=== PATIENT | female | born 1925 | race Caucasian/White ===

== ENCOUNTER 2016-03-23 13:36 | Inpatient (IN) | payer MEDICARE ==
[~2016-03-23] VITALS: Ht 149.9 cm; Wt 49.4 kg
[~2016-03-23 13:36] MED LIST: ACET1CAP18 PO; AMLO10 PO; APIX2.5T PO; ASPI81TA11 OR; ATOR20TA42 PO; BETH25TA PO; BIOFTAB PO; BIOT10004 PO; BONI150T PO; CALTCHW4 OR; CARV12.52 PO; DETR2TAB OR; DIOV320T PO; HYDR-3533 PO; MAGN400T PO; META0.52 PO; METO50TA PO; NIAC500T5 PO; PACE100T2 PO; PERI8.6T PO; PROT40TA PO; TAB-TAB PO; TRAZ50TA4 PO; URSO300C3 PO; VITA400C70 PO
[2016-03-23 13:42] VITALS: BP 225/99; PULSE 83; RESP 16; TEMP 97.5; O2SAT 97
[2016-03-23] MEDS ORDERED: ONDANSETRON HCL 4 MG/2 ML VIAL IV PUSH ONE ×2 (14:15→19:45)
[2016-03-23] MEDS ORDERED: MORPHINE SULFATE 4 MG/ML INJ IV PUSH ONE ×2 (14:15→19:45)
[2016-03-23 14:19] LABS: BASOPHIL % 0.5 % (0.0-2.0); EOSINOPHIL # 0.1 TH/MM3 (0-0.4); EOSINOPHIL % 1.2 % (0.0-4.0); HEMATOCRIT 38.8 % (35.0-46.0); HEMO FLAGS DIFF FINAL; LYMPHOCYTE # 0.7 TH/MM3 (1.0-4.8); MEAN CELL VOLUME 91.3 FL (80.0-100.0); MEAN CORPUSCULAR HEMOGLOBIN 29.9 PG (27.0-34.0); MEAN CORPUSCULAR HGB CONC 32.8 % (32.0-36.0); MONO % 12.9 % (0.0-8.0); NEUT % 75.4 % (16.0-70.0); PLATELET COUNT 132 TH/MM3 (150-450); RED BLOOD COUNT 4.25 MIL/MM3 (4.00-5.30); RED CELL DISTRIBUTION WIDTH 15.1 % (11.6-17.2); WHITE BLOOD COUNT 6.6 TH/MM3 (4.0-11.0)
--- NOTE | 2016-03-23 14:19 | PD ---
HPI Chief Complaint: Fall Time Seen by Provider: 14:17 Travel History International Travel<30 days: No Contact w/Intl Traveler<30days: No Traveled to known affect area: No History of Present Illness HPI 89-year-old female that presents to the ED for evaluation of trip and fall today. Per patient she lost her balance on her walker and she landed on her right side. She did not hit her head or lose consciousness. She states having severe pain on the right hip and cannot ambulate with pain 8 out of 10. She does have a history of previous fractures on the pelvic area on the right hip but she denies any surgeries. She was seen here in November for something similar. She does take blood thinners. She denies any numbness, tilling, weakness. Patient has no pain if she doesn't move it but if she moves she has severe pain on the right side. Allergies to penicillin, Polysporin, sulfa. Patient has not been given anything for this. Patient came here by ambulance for evaluation of this. She denies any back pain or neck pain. No arm pain. Denies any pain to the left lower extremity. PFSH Past Medical History Hx Anticoagulant Therapy: Yes Arthritis: Yes (OSTEOARTHRITIS) Atrial Fibrillation: Yes (WITH SVT) Autoimmune Disease: No Heart Rhythm Problems: No Cancer: Yes (Breast cancer) Cardiac Catheterization: Yes Cardiovascular Problems: Yes (HTN) High Cholesterol: Yes Chest Pain: Yes Cerebrovascular Accident: No Diabetes: No Diminished Hearing: Yes Diverticulitis: Yes Endocrine: No Gastrointestinal Disorders: Yes (GASTROPARESIS) GERD: Yes Genitourinary: No Hypertension: Yes Immune Disorder: No Musculoskeletal: Yes (Right pubic fracture, arthritis) Neurologic: Yes Psychiatric: No Reproductive: No Respiratory: No Immunizations Current: Yes Migraines: No Pancreatitis: Yes Seizures: No Thyroid Disease: No Triglycerides - High: Yes Ulcer: No Menopausal: Yes Past Surgical History Abdominal Surgery: Yes (HERNIA REPAIR) Cardiac Surgery: Yes (CABG) 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) Eye Surgery: Yes (BILATERAL CATARACTS) Genitourinary Surgery: Yes (BLADDER SLING) Gynecologic Surgery: Yes ( L LUMPECTOMY (BENIGN)) Hysterectomy: Yes Thoracic Surgery: Yes Tonsillectomy: Yes Valve Replacement: Yes (AORTIC VALVE) Other Surgery: Yes (MASTOID SURGERY ) Family History Family Hypercholesterolemia: Yes Social History Alcohol Use: Yes (RARE) Tobacco Use: No Substance Use: No Allergies-Medications (Allergen,Severity, Reaction): Coded Allergies: Penicillin (Verified Allergy, Severe, JAUNDICED, 12/12/15) Sulfa (Verified Allergy, Severe, 12/12/15) Polysporin (Verified Adverse Reaction, Severe, 12/12/15) Reported Meds & Prescriptions Reported Meds & Active Scripts Active Norvasc (Amlodipine Besylate) 10 Mg Tab 10 Mg PO DAILY 30 Days Lortab 5 mg/325 mg (Hydrocodone/Acetaminophen 5 mg/325 mg) 1 Tab 1-2 Tab PO Q4H PRN Mansi-Colace 8.6-50 mg (Sennosides-Docusate Sodium) 1 Tab Tab 2 Tab PO DAILY PRN May take 2 tablets daily up to 2 tablets twice daily as needed for constipation. Do not take more than a maximum of 4 tablets in 24 hours. Reported Vitamin E-400 (Vitamin E) 400 Unit Cap 400 Unit PO DAILY Tylenol (Acetaminophen) 325 Mg Cap 1 Cap PO PRN Trazodone Hcl (Trazodone HCl) 50 Mg Tab 1 Tab PO HS Eliquis (Apixaban) 2.5 Mg Tab 1 Tab PO BID Bioflex (Bioflavonoid Products) Tab 1 Tab PO DAILY Bethanechol Chloride 25 Mg Tab 1.5 Mg PO QID PRN Pacerone 100 mg (Amiodarone HCl) 100 Mg Tab 1 Tab PO DAILY Boniva (Ibandronate Sodium) 150 Mg Tab 150 Mg PO Q30D Ursodiol 300 Mg Cap 300 Mg PO BID Biotin 1 000 Tab 1,000 Mcg PO Metamucil (Psyllium) 0.52 Gm Cap 1 Cap PO DAILY Multivitamin (Multivitamins) 1 Tab Tab 1 Tab PO DAILY Metoprolol Tartrate 50 mg (Metoprolol Tartrate) 50 Mg Tab 25 Mg PO BID Niacin 500 Mg Tab 500 Mg PO DAILY Diovan 320 mg (Valsartan) 320 Mg Tab 320 Mg PO DAILY Mag-Ox 400 (Magnesium Oxide) 400 Mg Tab 400 Mg PO DAILY Aspirin EC 81 mg (Aspirin) 81 Mg Tab 81 Mg OR DAILY Caltrate 600+D (Calcium Carbonate/Cholecalciferol) Chw 1 OR BID Detrol 2 mg (Tolterodine Tartrate) 2 Mg Tab 4 Mg OR DAILY Protonix (Pantoprazole Sodium) 40 Mg Tabdr 40 Mg PO DAILY Carvedilol 12.5 mg (Carvedilol) 12.5 Mg Tab 25 Mg PO BID Lipitor (Atorvastatin Calcium) 20 Mg Tab 20 Mg PO DAILY Review of Systems Except as stated in HPI: all other systems reviewed are Neg Physical Exam Narrative GENERAL: SKIN: Warm and dry. HEAD: Atraumatic. Normocephalic. EYES: Pupils equal and round. No scleral icterus. No injection or drainage. ENT: No nasal bleeding or discharge. Mucous membranes pink and moist. Tongue is midline. No uvula deviation. NECK: Trachea midline. No JVD. CARDIOVASCULAR: Regular rate and rhythm. No murmurs, S3, S4. RESPIRATORY: No accessory muscle use. Clear to auscultation. Breath sounds equal bilaterally. GASTROINTESTINAL: Abdomen soft, non-tender, nondistended. Hepatic and splenic margins not palpable. MUSCULOSKELETAL: Extremities without clubbing, cyanosis, or edema. No obvious deformities. Patient has reproducible pain with touch as well as with any movement on the right hip. Minimal movement of the right hip causes severe pain to the patient. No obvious deformity noted. Knees appear to be intact bilaterally. Ankles as well as feet and toes appear to be intact as well with 2 + pulses bilaterally. Patient has neurovascular intact. Patient has full range of motion of the upper extremities. No lumbar, thoracic, cervical spine tenderness to palpation. NEUROLOGICAL: Awake and alert. No obvious cranial nerve deficits. Motor grossly within normal limits. Five out of 5 muscle strength in the arms and legs. Normal speech. PSYCHIATRIC: Appropriate mood and affect; insight and judgment normal. Data Data Last Documented VS Vital Signs Date Time Temp Pulse Resp B/P Pulse Ox O2 Delivery O2 Flow Rate FiO2 03/23/16 13:42 97.5 83 16 225/99 97 Orders Femur (Ap & Lat/2vws) (03/23/16 13:53) Hip, Uni(Ap&Lat) W Ap Pelvis (03/23/16 13:53) Ice/Cold Pack (03/23/16 13:53) Electrocardiogram (03/23/16 13:53) Complete Blood Count With Diff (03/23/16 13:53) Basic Metabolic Panel (Bmp) (03/23/16 13:53) Prothrombin Time / Inr (Pt) (03/23/16 13:53) Act Partial Throm Time (Ptt) (03/23/16 13:53) Urinalysis - C+S If Indicated (03/23/16 13:53) Chest, Single Ap (03/23/16 13:53) Iv Access Insert/Monitor (03/23/16 13:53) Morphine Inj (Morphine Inj) (03/23/16 14:15) Ondansetron Inj (Zofran Inj) (03/23/16 14:15) Ct Brain W/O Iv Contrast(Rout) (03/23/16 ) Splint Or Brace Apply/Monitor (03/23/16 15:30) Admit Order (Ed Use Only) (03/23/16 15:49) Labs Laboratory Tests Test 03/23/16 03/23/16 13:55 14:00 Urine Color YELLOW Urine Turbidity CLEAR Urine pH 7.5 Urine Specific [place] 1.008 Urine Protein NEG mg/dL Urine Glucose (UA) NEG mg/dL Urine Ketones NEG mg/dL Urine Occult Blood NEG Urine Nitrite NEG Urine Bilirubin NEG Urine Urobilinogen LESS THAN 2.0 MG/DL Urine Leukocyte Esterase SMALL Urine RBC 1 /hpf Urine WBC LESS THAN 1 /hpf Urine Squamous Epithelial <1 /hpf Cells Urine Bacteria RARE /hpf Microscopic Urinalysis Comment CULT NOT INDICATED White Blood Count 6.6 TH/MM3 Red Blood Count 4.25 MIL/MM3 Hemoglobin 12.7 GM/DL Hematocrit 38.8 % Mean Corpuscular Volume 91.3 FL Mean Corpuscular Hemoglobin 29.9 PG Mean Corpuscular Hemoglobin 32.8 % Concent Red Cell Distribution Width 15.1 % Platelet Count 132 TH/MM3 Mean Platelet Volume 9.9 FL Neutrophils (%) (Auto) 75.4 % Lymphocytes (%) (Auto) 10.0 % Monocytes (%) (Auto) 12.9 % Eosinophils (%) (Auto) 1.2 % Basophils (%) (Auto) 0.5 % Neutrophils # (Auto) 5.0 TH/MM3 Lymphocytes # (Auto) 0.7 TH/MM3 Monocytes # (Auto) 0.9 TH/MM3 Eosinophils # (Auto) 0.1 TH/MM3 Basophils # (Auto) 0.0 TH/MM3 CBC Comment DIFF FINAL Differential Comment Prothrombin Time 12.0 SEC Prothromb Time International 1.1 RATIO Ratio Activated Partial 27.3 SEC Thromboplast Time Sodium Level 134 MEQ/L Potassium Level 3.8 MEQ/L Chloride Level 98 MEQ/L Carbon Dioxide Level 27.8 MEQ/L Anion Gap 8 MEQ/L Blood Urea Nitrogen 15 MG/DL Creatinine 0.62 MG/DL Estimat Glomerular Filtration 91 ML/MIN Rate Random Glucose 92 MG/DL Calcium Level 8.6 MG/DL [facility] Medical Decision Making Medical Screen Exam Complete: Yes Emergency Medical Condition: Yes Medical Record Reviewed: Yes Interpretation(s) CBC & BMP Diagram 03/23/16 14:00 UA negative for acute infection. Coags within normal limits. Chest x-ray negative for acute disease. EKG shows sinus rhythm with no sign of acute arrhythmia or ischemia. Read by me and attending. Last Impressions Chest X-Ray 03/23/16 1353 Signed Impressions: Service Date/Time: Wednesday, March 23, 2016 14:27 - CONCLUSION: No acute process Rivas Merino MD Head CT 03/23/16 0000 Signed Impressions: Service Date/Time: Wednesday, March 23, 2016 15:34 - CONCLUSION: Stable CT brain scan with moderate atrophy. No acute intracranial abnormality. Rivas Merino MD Differential Diagnosis Fall versus injury versus fracture versus sprain versus strain versus contusion Narrative Course 89-year-old female that presents to the ED for evaluation of fall to the right hip. Patient was properly examined and was found to have signs and symptoms concerning for fracture. X-rays were done as well as labs and imaging. Patient was given IV morphine. Labs and imaging showed fracture of the right hip. Case was discussed in my attending who agrees with plan. Orthopedic surgeon was contacted. Patient will be admitted to medical team [facility]. This was discussed with family and patient who agree with admission and treatment plan. Case was discussed with orthopedic surgeon Dr Short who recommends surgery tomorrow likely afternoon after blood thinners stopped. Nothing by mouth after midnight. Admit to medicine. My attending spoke with Dr. Mark who agrees to [facility]. Diagnosis Primary Impression: Hip fracture, right Qualified Code: S72.001A - Hip fracture, right, closed, initial encounter Admitting Information Admitting Physician Requests: Admit Chris Mora Mar 23, 2016 14:19
[2016-03-23 14:21] LABS: BACTERIA, URINE RARE /hpf; BLOOD, URINE NEG (NEG); GLUCOSE,URINE NEG (NEG); KETONE, URINE NEG (NEG); NITRITE,URINE NEG (NEG); PH, URINE 7.5 (5.0-8.5); SQUAMOUS EPITHELIAL CELL URINE <1 /hpf (0-5); URINE COLOR YELLOW (YELLW/STRAW)
[2016-03-23 14:23] LABS: COMMENT (UR) CULT NOT INDICATED; CULTURE IF INDICATED CULT NOT INDICATED
[2016-03-23 14:29] LABS: APTT (PATIENT) 27.3 SEC (24.3-30.1); INTERNATIONAL NORMALIZED RATIO 1.1 RATIO
[2016-03-23 14:38] LABS: BICARBONATE 27.8 MEQ/L (21.0-32.0); POTASSIUM 3.8 MEQ/L (3.5-5.1)
--- NOTE | 2016-03-23 15:44 | RADRPT ---
EXAM DATE/TIME: 03/23/2016 14:27 [facility] COMPARISON: CHEST SINGLE AP, December 12, 2015, 20:59. INDICATIONS : Evaluate lung status. Patient fell today. MEDICAL HISTORY : Hypertension. Hypercholesterolemia. Chronic obstructive pulmonary disease.Congestive heart failure. H yperlipidemia. Hiatal hernia. Diverticulitis. Pancreatitis. Uterine cancer. SURGICAL HISTORY : CABG Pacemaker.Hysterectomy.Heart valve replacement. Hernia repair. Laminectomy. Bladder sling. ENCOUNTER: Initial ACUITY: 1 day PAIN SCORE: 4/10 LOCATION: Bilateral chest FINDINGS: Multiple remote healed right rib fractures appreciated with evidence prior median sternotomy CABG and atherosclerotic changes of the aorta. Lung godoy are clear with no acute cardiopulmonary process an d no evidence of pneumothorax. CONCLUSION: No acute process Rivas Merino MD on March 23, 2016 at 15:42 Board Certified Radiologist. This report was verified electronically.
--- NOTE | 2016-03-23 15:51 | RADRPT ---
EXAM DATE/TIME: 03/23/2016 15:34 [facility] COMPARISON: CT BRAIN W/O CONTRAST, May 08, 2012, 11:39. INDICATIONS : Trip and fall this morning. RADIATION DOSE: 56.35 CTDIvol (mGy) MEDICAL HISTORY : Carcinoma, breast. Cardiovascular disease Hypertension. SURGICAL HISTORY : None. ENCOUNTER: Initial ACUITY: 1 day PAIN SCALE: 5/10 LOCATION: cranial TECHNIQUE: Multiple contiguous axial images were obtained of the head. Using automated exposure control and adjustment of the mA and/or kV according to patient size, radiation dose was kept as low as reasonably achievable to obtain optimal diagnostic quality images. FINDINGS: CEREBRUM: The ventricles are normal for age with moderate atrophy No evidence of midline shift, m ass lesion, hemorrhage or acute infarction. No extra-axial fluid collections are seen. POSTERIOR FOSSA: The cerebellum and brainstem are intact. The 4th ventricle is midline. The cer ebellopontine angle is unremarkable. EXTRACRANIAL: The visualized portion of the orbits is intact. SKULL: The calvaria is intact. No evidence of skull fracture. CONCLUSION: Stable CT brain scan with moderate atrophy. No acute intracranial abnormality. Rivas Merino MD on March 23, 2016 at 15:48 Board Certified Radiologist. This report was verified electronically.
--- NOTE | 2016-03-23 16:37 | RADRPT ---
EXAM DATE/TIME: 03/23/2016 14:30 [facility] COMPARISON: No previous studies available for comparison. INDICATIONS: Right hip pain after falling today. MEDICAL HISTORY: Hypertension. Hypercholesterolemia. Chronic obstructive pulmonary disease. Congestive heart failure. Hyperlipidemia. Hiatal hernia. Diverticulitis. Pancreatitis. Uterine cancer. SURGICAL HISTORY: CABG Pacemaker. Hysterectomy. Heart valve replacement. Hernia repair. Laminectomy. Bladder sling. ENCOUNTER: Initial ACUITY: 1 day PAIN SCORE: 6/10 LOCATION: Right hip. FINDINGS: Again seen is the hip fracture involving the intertrochanteric region and the femoral neck of the fem ur. No other fractures are appreciated. CONCLUSION: Fracture as described above. Bertin Muniz MD FACR on March 23, 2016 at 16:22 Board Certified Radiologist. This report was verified electronically.
--- NOTE | 2016-03-23 16:38 | RADRPT ---
EXAM DATE/TIME: 03/23/2016 14:27 [facility] COMPARISON: HIP RIGHT (AP&LAT 2/3VWS) W AP PELVIS, December 12, 2015, 20:59. INDICATIONS: Right hip pain after falling today. MEDICAL HISTORY: Hypertension. Hypercholesterolemia. Chronic obstructive pulmonary disease. Congestive heart failure. Hyperlipidemia. Hiatal hernia. Diverticulitis. Pancreatitis. Uterine cancer. SURGICAL HISTORY: CABG Pacemaker. Hysterectomy. Heart valve replacement. Hernia repair. Laminectomy. Bladder sling. ENCOUNTER: Initial ACUITY: 1 day PAIN SCORE: 6/10 LOCATION: Right hip. FINDINGS: There is an intertrochanteric fracture of the right hip. It is somewhat vertically extending across the intertrochanteric line into the base of the femur. Old fracture is seen in the inferior pubic ra mus on the right. CONCLUSION: Hip fracture as described above. Bertin Muniz MD FACR on March 23, 2016 at 16:22 Board Certified Radiologist. This report was verified electronically.
--- NOTE | 2016-03-23 16:50 | PD ---
Physical Exam Narrative General: 89 y/o patient in no apparent distress Skin: Dry Eyes: Pupils equal NECK: Trachea midline Cardiovascular: Regular rate and rhythm Respiratory: Normal respiratory effort noted Extremities: Shortening noted to leg Neuro: awake, clear speech Data Data Last Documented VS Vital Signs Date Time Temp Pulse Resp B/P Pulse Ox O2 Delivery O2 Flow Rate FiO2 03/23/16 13:42 97.5 83 16 225/99 97 Orders Femur (Ap & Lat/2vws) (03/23/16 13:53) Hip, Uni(Ap&Lat) W Ap Pelvis (03/23/16 13:53) Ice/Cold Pack (03/23/16 13:53) Electrocardiogram (03/23/16 13:53) Complete Blood Count With Diff (03/23/16 13:53) Basic Metabolic Panel (Bmp) (03/23/16 13:53) Prothrombin Time / Inr (Pt) (03/23/16 13:53) Act Partial Throm Time (Ptt) (03/23/16 13:53) Urinalysis - C+S If Indicated (03/23/16 13:53) Chest, Single Ap (03/23/16 13:53) Iv Access Insert/Monitor (03/23/16 13:53) Morphine Inj (Morphine Inj) (03/23/16 14:15) Ondansetron Inj (Zofran Inj) (03/23/16 14:15) Ct Brain W/O Iv Contrast(Rout) (03/23/16 ) Splint Or Brace Apply/Monitor (03/23/16 15:30) Admit Order (Ed Use Only) (03/23/16 15:49) Labs Laboratory Tests Test 03/23/16 03/23/16 13:55 14:00 Urine Color YELLOW Urine Turbidity CLEAR Urine pH 7.5 Urine Specific [place] 1.008 Urine Protein NEG mg/dL Urine Glucose (UA) NEG mg/dL Urine Ketones NEG mg/dL Urine Occult Blood NEG Urine Nitrite NEG Urine Bilirubin NEG Urine Urobilinogen LESS THAN 2.0 MG/DL Urine Leukocyte Esterase SMALL Urine RBC 1 /hpf Urine WBC LESS THAN 1 /hpf Urine Squamous Epithelial <1 /hpf Cells Urine Bacteria RARE /hpf Microscopic Urinalysis Comment CULT NOT INDICATED White Blood Count 6.6 TH/MM3 Red Blood Count 4.25 MIL/MM3 Hemoglobin 12.7 GM/DL Hematocrit 38.8 % Mean Corpuscular Volume 91.3 FL Mean Corpuscular Hemoglobin 29.9 PG Mean Corpuscular Hemoglobin 32.8 % Concent Red Cell Distribution Width 15.1 % Platelet Count 132 TH/MM3 Mean Platelet Volume 9.9 FL Neutrophils (%) (Auto) 75.4 % Lymphocytes (%) (Auto) 10.0 % Monocytes (%) (Auto) 12.9 % Eosinophils (%) (Auto) 1.2 % Basophils (%) (Auto) 0.5 % Neutrophils # (Auto) 5.0 TH/MM3 Lymphocytes # (Auto) 0.7 TH/MM3 Monocytes # (Auto) 0.9 TH/MM3 Eosinophils # (Auto) 0.1 TH/MM3 Basophils # (Auto) 0.0 TH/MM3 CBC Comment DIFF FINAL Differential Comment Prothrombin Time 12.0 SEC Prothromb Time International 1.1 RATIO Ratio Activated Partial 27.3 SEC Thromboplast Time Sodium Level 134 MEQ/L Potassium Level 3.8 MEQ/L Chloride Level 98 MEQ/L Carbon Dioxide Level 27.8 MEQ/L Anion Gap 8 MEQ/L Blood Urea Nitrogen 15 MG/DL Creatinine 0.62 MG/DL Estimat Glomerular Filtration 91 ML/MIN Rate Random Glucose 92 MG/DL Calcium Level 8.6 MG/DL [facility] Supervised Visit with EUGENIE: Yes Interpretation(s) CBC & BMP Diagram 03/23/16 14:00 Last 24 hours Impressions Chest X-Ray 03/23/16 1353 Signed Impressions: Service Date/Time: Wednesday, March 23, 2016 14:27 - CONCLUSION: No acute process Rivas Merino MD Head CT 03/23/16 0000 Signed Impressions: Service Date/Time: Wednesday, March 23, 2016 15:34 - CONCLUSION: Stable CT brain scan with moderate atrophy. No acute intracranial abnormality. Rivas Merino MD Narrative Course I, Dr. richard, have reviewed the advance practice practitioner's documentation and am in agreement, met with the patient face to face, made the diagnosis, and the medical decision making was done by me. *My assessment and Findings: 89-year-old female status post fall with hip fracture will be admitted for clearance and surgical repair. Family updated and questions answered Physician Communication Physician Communication Doctor kurt discussed case with me and agrees to admit Diagnosis Primary Impression: Hip fracture, right Qualified Code: S72.001A - Hip fracture, right, closed, initial encounter Admitting Information Admitting Physician Requests: Admit Ce Richard MD Mar 23, 2016 16:50
[2016-03-23] MEDS ORDERED: DOCUSATE SODIUM 50 MG/SENNA 8.6 MG TAB PO PRN (17:00)
[2016-03-23] MEDS ORDERED: AMIODARONE 100 MG PO SCH (17:00)
[2016-03-23] MEDS ORDERED: CORE25TA PO (17:36)
[2016-03-23] MEDS ORDERED: DOCU1CAP21 PO (17:36)
[2016-03-23] MEDS ORDERED: MIRA33504 PO (17:36)
[2016-03-23] MEDS ORDERED: APIX2.5T PO (17:36)
[2016-03-23] MEDS ORDERED: LIPI20TA PO (17:36)
[2016-03-23] MEDS ORDERED: DIOV160T6 PO (17:36)
[2016-03-23] MEDS ORDERED: BETH25TA2 PO (17:36)
[2016-03-23] MEDS ORDERED: ASPI1TAB91 PO (17:36)
[2016-03-23] MEDS ORDERED: TRAZ50TA12 PO (17:36)
[2016-03-23] MEDS ORDERED: DETR4CAP PO (17:36)
[2016-03-23] MEDS ORDERED: NATU400T PO (17:36)
[2016-03-23] MEDS ORDERED: TYLE325T PO (17:36)
[2016-03-23] MEDS ORDERED: URSO300C2 PO (17:36)
[2016-03-23] MEDS ORDERED: CALTTAB PO (17:36)
[2016-03-23] MEDS ORDERED: PROT40TA PO (17:36)
[2016-03-23] MEDS ORDERED: MIAC200S NASAL (17:36)
[2016-03-23] MEDS ORDERED: AMIO0.1T PO (17:36)
[2016-03-23] MEDS ORDERED: NIAC500T18 PO (17:36)
[2016-03-23] MEDS ORDERED: BONI150T PO (17:36)
[2016-03-23] MEDS ORDERED: MAGN400T2 PO (17:36)
[2016-03-23] MEDS ORDERED: GLUC15009 PO (17:36)
[2016-03-23] MEDS ORDERED: BIOT1000 PO (17:36)
[2016-03-23] MEDS ORDERED: MULT-135 PO (17:36)
[2016-03-23] MEDS ORDERED: PILL SPLITTER OTHER PRN (18:00)
--- NOTE | 2016-03-23 18:31 | HHI.PR ---
Objective Objective Results - Vital Signs Date Time Temp Pulse Resp B/P Pulse Ox O2 Delivery O2 Flow Rate FiO2 03/23/16 13:42 97.5 83 16 225/99 97 Result Diagram: 03/23/16 1400 03/23/16 1400 Other Results Laboratory Tests Test 03/23/16 03/23/16 13:55 14:00 Urine Color YELLOW Urine Turbidity CLEAR Urine pH 7.5 Urine Specific [place] 1.008 Urine Protein NEG Urine Glucose (UA) NEG Urine Ketones NEG Urine Occult Blood NEG Urine Nitrite NEG Urine Bilirubin NEG Urine Urobilinogen LESS THAN 2.0 Urine Leukocyte Esterase SMALL Urine RBC 1 Urine WBC LESS THAN 1 Urine Squamous Epithelial <1 Cells Urine Bacteria RARE Microscopic Urinalysis Comment CULT NOT INDICATED White Blood Count 6.6 Red Blood Count 4.25 Hemoglobin 12.7 Hematocrit 38.8 Mean Corpuscular Volume 91.3 Mean Corpuscular Hemoglobin 29.9 Mean Corpuscular Hemoglobin 32.8 Concent Red Cell Distribution Width 15.1 Platelet Count 132 Mean Platelet Volume 9.9 Neutrophils (%) (Auto) 75.4 Lymphocytes (%) (Auto) 10.0 Monocytes (%) (Auto) 12.9 Eosinophils (%) (Auto) 1.2 Basophils (%) (Auto) 0.5 Neutrophils # (Auto) 5.0 Lymphocytes # (Auto) 0.7 Monocytes # (Auto) 0.9 Eosinophils # (Auto) 0.1 Basophils # (Auto) 0.0 CBC Comment DIFF FINAL Differential Comment Prothrombin Time 12.0 Prothromb Time International 1.1 Ratio Activated Partial 27.3 Thromboplast Time Sodium Level 134 Potassium Level 3.8 Chloride Level 98 Carbon Dioxide Level 27.8 Anion Gap 8 Blood Urea Nitrogen 15 Creatinine 0.62 Estimat Glomerular Filtration 91 Rate Random Glucose 92 Calcium Level 8.6 Physical Exam Physical Exam PT is seen & Examined d/w PT & her 2 daughters at bedside d/w Whit see Orders see H&P will f/u Brad Mark MD Mar 23, 2016 18:31
[2016-03-23] MEDS ORDERED: MORPHINE SULFATE 4 MG/ML INJ IV PRN (20:30)
[2016-03-23] MEDS: AMIODARONE 200 MG TAB PO SCH (20:59)
[2016-03-23] MEDS: CARVEDILOL 12.5 MG TAB PO SCH (21:08)
[2016-03-23 21:31] VITALS: BP 214/97; PULSE 68; RESP 15; O2SAT 96
[2016-03-23] MEDS ORDERED: ENALAPRILAT 1.25 MG/ML VIAL IV PUSH PRN (22:15)
[2016-03-23] MEDS ORDERED: cloNIDine HCL 0.1 MG TAB PO PRN (22:15)
[2016-03-23] MEDS: URSODIOL 300 MG CAP PO SCH (22:16)
[2016-03-23 23:00] VITALS: BP 194/87; PULSE 67; RESP 15; O2SAT 99
[2016-03-24 00:23] VITALS: BP 171/75; PULSE 63; RESP 16; O2SAT 97
[2016-03-24 04:15] VITALS: BP 130/60; PULSE 58; RESP 16; TEMP 98.6; O2SAT 97
[2016-03-24 07:23] VITALS: BP 155/71; PULSE 59; RESP 14; O2SAT 97
--- NOTE | 2016-03-24 08:55 | MH ---
cc: AIDEEGARRETSHONTIKA DATE OF : 1925 DATE OF ADMISSION: 03/23/2016 CHIEF COMPLAINT: Fall, right hip pain. TRAVEL HISTORY: None in the last 30 days. HISTORY OF PRESENT ILLNESS: The patient is a pleasant 89 year-old white female who looks to be her stated age resting in bed. She is alert, oriented x2 to 3. Her two daughters are at her side assisting with her history. According to the daughters, and the patient agreed, the patient had gone to the bathroom. The seat was up on the toilet and she had urine that splattered over the side. The urine was on the floor. When the patient got up to go back to her room, she slipped and fell hitting her right hip. She denies hitting her head, denies loss of consciousness, denies any shortness of breath, any chest pain, any headache. No nausea, no vomiting, no diarrhea, no constipation. The patient has had previous pelvic fractures in the past with multi-medical comorbidities that will be discussed. The patient is on Xarelto and takes her blood thinners and/or other medications every day. Last known doses were this a.m. The patient denies any numbness or tingling in her extremities. She is currently comfortable, resting in bed. She denies any musculoskeletal pain, such as back pain or neck pain. She does have pain in the right lower extremity with any type of movement. PAST MEDICAL HISTORY: 1. Anticoagulant therapy with Xarelto. 2. Pelvic fracture x2. 3. Osteoarthritis. 4. Atrial fibrillation with runs of RVR. 5. Breast cancer. 6. Coronary artery disease. 7. Hyperlipidemia. 8. Tricuspid, mitral and aortic valve disease. 9. History of chest pain. 10. History of small bowel obstruction. 11. Diverticulitis. 12. Gastroparesis. 13. GERD. 14. Hypertension. 15. Right pubic fracture. 16. Immunizations are current. 17. Pancreatitis. 18. Hyperlipidemia. 19. Postmenopausal. PAST SURGICAL HISTORY: 1. Hernia repair. 2. CABG x1 vessel. 3. Bilateral cataracts. 4. Bladder sling. 5. Left lumpectomy. 6. Small bowel obstruction. 7. Hysterectomy. 8. Laminectomy, L4-L5. 9. Tonsillectomy. 10. Tricuspid and mitral ring surgery. 11. Aortic valve replacement. 12. Mastoid surgery. FAMILY HISTORY: Hyperlipidemia. 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 She also has two daughters who are very involved in her care. The patient is . ALLERGIES PENICILLIN. POLYSPORIN SULFA MEDICATIONS: REPORTED: 1. Vitamin E 2. Tylenol 3. Trazodone 4. Eliquis 5. Bioflex. 6. Pacerone. 7. Bethanechol. 8. Ursodiol. 9. Biotin. 10. Metamucil. 11. Multivitamins. 12. Metoprolol. 13. Niacin. 14. Diovan. 15. Mag ox. 16. Aspirin 17. Calcium 18. Detrol. 19. Protonix 20. Coreg. 21. Lipitor. All of these medicines were taken this morning as prescribed. REVIEW OF SYSTEMS: A 12 point review of systems was obtained, positive noted is right hip pain. Other systems reviewed are negative or unremarkable. PHYSICAL EXAMINATION: GENERAL: Thin, frail white female, looks to be her stated age. She is resting in bed, currently alert, oriented x3. She is a poor historian. Her daughters are at her bedside assisting. The patient can answer yes or no questions. HEENT: Atraumatic, normocephalic. PERRLA 2. No scleral icterus, no nasal drainage, mucous membranes are pink and moist. Tongue is midline. Trachea is midline. No JVD. CARDIOVASCULAR: Regular rate and rhythm. Systolic murmurs throughout her precordium. No rubs or gallops audible. RESPIRATORY: She is essentially clear to auscultation. No rales, rhonchi or wheezing. ABDOMEN: Soft, non-tender, non-distended. Very small. Hernia noted which may be new. Active bowel sounds all four quadrants. MUSCULOSKELETAL: She moves extremities, upper extremities with purpose. She has equal hand tapper helper. Lower extremities, she can move but extreme pain in the right leg with any type of movement. She has no edema. Pulses 2+/4+. NEUROLOGIC: Awake, alert x2. No obvious cranial nerve deficits, 4/5 strength in her hands. Normal speech. PSYCHIATRIC: Appropriate affect. Insight is normal for age. LABORATORY DATA: White blood cell count 6.6, RBC 4.6, hemoglobin 12.7, hematocrit 38.8, platelet count 132, neutrophil percentage auto 75.4, coag, PT is 1.1, urine is yellow clear, pH is 7.5, specific gravity 1.008, negative for protein, glucose, bilirubin, occult blood, nitrites, less than 2, urobilinogen small amount of leukocyte esterase, rare bacteria. Sodium is 134, potassium 3.8, chloride 98, carbon dioxide 27.8, anion gap is 8, BUN 15, creatinine 0.62. GFR is 91, random glucose is 92, calcium 8.6. IMAGING STUDIES: No acute issues on her chest x-ray. Positive for right femur fracture. Right hip pelvis fracture, right fracture as described above. Right hip fracture involving the intertrochanteric region, femoral neck fracture, it is a closed fracture. CT of the head is unremarkable. ASSESSMENT AND PLAN: 1. Right closed hip fracture as described. 2. Hyponatremia mild. 3. History of hypertension. 4. Coronary artery disease. 5. GERD. 6. History of CVA. 7. Hyperlipidemia. The plan is to admit the patient, ortho consult is appreciated for his expert opinion, since the patient is on blood thinner, Xarelto, this medication has to be stopped. The plan is n.p.o. at midnight, plan on tentative surgery for repair tomorrow. The patient will be placed in traction. Vital signs q4 and if warranted, will monitor for any fever, change in pulse, respirations or blood pressure. Monitor labs as warranted, reconcile her medications. Monitor her labs in the morning. She can have a regular diet tonight, n.p.o. at midnight. The patient will be on Protonix for PUD prophylaxis. DVT prophylaxis has been covered with Eliquis. We will monitor. The patient will be off this medicine after tonight for her surgery tomorrow. Supportive care and plan of care has been explained to the patient. She will need pain management. We will follow her needs. The patient is full code, full aggressive care. Dictated by: JIMI Grande MD SIS Burnham/JUNAID /6:34 PM /8:47 AM PT is seen & Examined d/w PT & her 2 daughters at bedside d/w Whit see Orders see H&P will f/u Brad Mark MD Mar 23, 2016 18:31 MTDD
[2016-03-24] MEDS: ATORVASTATIN 20 MG TAB PO SCH (09:00)
[2016-03-24] MEDS: PANTOPRAZOLE SOD 40 MG DELAYED RELEASE TAB PO SCH (09:00)
[2016-03-24] MEDS: VALSARTAN 160 MG TAB PO SCH (09:00)
[2016-03-24] MEDS: URSODIOL 300 MG CAP PO SCH ×2 (09:00→20:17)
[2016-03-24] MEDS: AMIODARONE 200 MG TAB PO SCH (09:00)
[2016-03-24] MEDS: CARVEDILOL 12.5 MG TAB PO SCH ×2 (09:00→20:18)
--- NOTE | 2016-03-24 10:51 | HHI.PR ---
Subjective Remarks No acute chest pain No shortness of breath No headache Right leg/hip pain. Improved with Raza's traction Hard of hearing Pleasant affect No nausea vomiting. Nothing by mouth for surgery/ (Whit Garcia) Objective Objective Results - Vital Signs Date Time Temp Pulse Resp B/P Pulse Ox O2 Delivery O2 Flow Rate FiO2 03/24/16 07:23 59 14 155/71 97 Room Air 03/24/16 04:15 98.6 58 16 130/60 97 Room Air 03/24/16 00:24 16 03/24/16 00:23 63 16 171/75 97 Room Air 03/23/16 23:00 67 15 194/87 99 Room Air 03/23/16 21:31 68 15 214/97 96 Room Air 03/23/16 13:42 97.5 83 16 225/99 97 (Whit Garcia) Result Diagram: 03/23/16 1400 03/23/16 1400 Other Results Last Impressions Hip and Pelvis X-Ray 03/23/16 1353 Signed Impressions: Service Date/Time: Wednesday, March 23, 2016 14:27 - CONCLUSION: Hip fracture as described above. Bertin Muniz MD FACR Femur X-Ray 03/23/16 1353 Signed Impressions: Service Date/Time: Wednesday, March 23, 2016 14:30 - CONCLUSION: Fracture as described above. Bertin Muniz MD FACR Chest X-Ray 03/23/16 1353 Signed Impressions: Service Date/Time: Wednesday, March 23, 2016 14:27 - CONCLUSION: No acute process Rivas Merino MD Head CT 03/23/16 0000 Signed Impressions: Service Date/Time: Wednesday, March 23, 2016 15:34 - CONCLUSION: Stable CT brain scan with moderate atrophy. No acute intracranial abnormality. Rivas Merino MD Medications and IVs Active Medications Amiodarone HCl (Cordarone) 100 mg DAILY PO Last administered on 03/23/16t 20:59 ; Admin Dose 100 MG; Start 03/23/16 at 18:00 Amlodipine Besylate (Norvasc) 10 mg DAILY PO; Start 03/24/16 at 09:00 Atorvastatin Calcium (Lipitor) 20 mg DAILY PO; Start 03/24/16 at 09:00 Carvedilol (Coreg) 25 mg BID PO Last administered on 03/23/16 21:08; Admin Dose 25 MG; Start 03/23/16 at 21:00 Clonidine (Catapres) 0.1 mg Q8H PRN PO Last administered on 03/23/16 22:16; Admin Dose 0.1 MG; Start 03/23/16 at 22:15 Enalaprilat (Vasotec Inj) 1.25 mg Q6H PRN IV PUSH; Start 03/23/16 at 22:15 Miscellaneous (Pill Splitter) 1 ea UNSCH PRN OTHER; Start 03/23/16 at 18:00 Morphine Sulfate (Morphine Inj) 2 mg Q4H PRN IV; Start 03/23/16 at 20:30 Morphine Sulfate (Morphine Inj) 4 mg ONCE ONCE IV PUSH Last administered on 15:24; Admin Dose 4 MG; Start 03/23/16 at 14:15; Stop 03/23/16 at 14:16 ; Status DC Morphine Sulfate (Morphine Inj) 4 mg ONCE ONCE IV PUSH Last administered on 21:00; Admin Dose 4 MG; Start 03/23/16 at 19:45; Stop 03/23/16 at 19:46 ; Status DC Non-Formulary Medication 1 tab DAILY PO; Start 03/23/16 at 17:00; Status UNV Ondansetron HCl (Zofran Inj) 4 mg ONCE ONCE IV PUSH Last administered on 15:23; Admin Dose 4 MG; Start 03/23/16 at 14:15; Stop 03/23/16 at 14:16; Status DC Ondansetron HCl (Zofran Inj) 4 mg ONCE ONCE IV PUSH Last administered on 21:00; Admin Dose 4 MG; Start 03/23/16 at 19:45; Stop 03/23/16 at 19:46; Status DC Pantoprazole Sodium (Protonix) 40 mg DAILY PO; Start 03/24/16 at 09:00 Senna/Docusate Sodium (Mansi-Colace) 2 tab DAILY PRN PO; Start 03/23/16 at 17:00 Ursodiol (Actigall) 300 mg BID PO Last administered on 03/23/16 22:16; Admin Dose 300 MG; Start 03/23/16 at 21:00 Valsartan (Diovan) 320 mg DAILY PO; Start 03/24/16 at 09:00 (Whit Garcia) ROS General: Weakness, Other (10 point review of systems done. Positive include weakness, other systems negative or unremarkable) Neuro/MS: Other (right hip pain. Currently in Raza's traction) (Whit Garcia) Physical Exam Physical Exam PHYSICAL EXAMINATION: GENERAL: Thin, frail white female, looks to be her stated age. She is resting in bed, currently alert, oriented x3. She is a poor historian. Her daughters are at her bedside assisting. The patient can answer yes or no questions. HEENT: Atraumatic, normocephalic. PERRLA 2. No scleral icterus, no nasal drainage, mucous membranes are pink and moist. Tongue is midline. Trachea is midline. No JVD. CARDIOVASCULAR: Regular rate and rhythm. Systolic murmurs throughout her precordium. No rubs or gallops audible. RESPIRATORY: She is essentially clear to auscultation. No rales, rhonchi or wheezing. ABDOMEN: Soft, non-tender, non-distended. Very small. Hernia noted which may be new. Active bowel sounds all four quadrants. MUSCULOSKELETAL: She moves extremities, upper extremities with purpose. She has equal hand home health billing specialist. Lower extremities, she can move but extreme pain in the right leg with any type of movement. She has no edema. Pulses 2+/4+. NEUROLOGIC: Awake, alert x2. No obvious cranial nerve deficits, 4/5 strength in her hands. Normal speech. PSYCHIATRIC: Appropriate affect. Insight is normal for age. Objective Remarks Im ready for surgery. (Whit Garcia) A/P Assessment and Plan ASSESSMENT AND PLAN: 1. Right closed hip fracture as described. 2. Hyponatremia mild. 3. History of hypertension. 4. Coronary artery disease. 5. GERD. 6. History of CVA. 7. Hyperlipidemia. ortho consult is appreciated for his expert opinion, patient is on blood thinner, Xarelto, stopped on admission. Pending surgery this a.m. n.p.o. at midnight, surgery for repair this a.m. The patient placed in traction right leg. Vital signs q4 and if warranted, will monitor for any fever, change in pulse, respirations or blood pressure. Monitor labs as warranted, reconcile her medications. Monitor her labs in the morning. She can have a regular diet tonight, n.p.o. at midnight. The patient will be on Protonix for PUD prophylaxis. DVT prophylaxis has been covered with Eliquis and will resume postop. We will monitor. Supportive care and plan of care has been explained to the patient. pain management. We will follow her needs. As noted above, right hip repair today Discharge Planning Home with support of daughter's versus rehabilitation postop Discussed With: Nurse, Family (daughter Elis is present.), Other (discussed with patient. Discussed with Dr. Mark. Patient seen on his behalf) (Whit Garcia) Assessment and Plan pt is seen & examined d/w PT & her daughter at bedside d/w Whit arriaga input appreciated [facility] Hip surgery this afternoon cont supportive care will f/u (Brad Mark MD) Whit Garcia Mar 24, 2016 10:51 Brad Mark MD Mar 24, 2016 12:04
[2016-03-24] MEDS ORDERED: ONDANSETRON HCL 4 MG/2 ML VIAL IV PUSH ONE (12:00)
[2016-03-24] MEDS ORDERED: PROPOFOL 200 MG/20 ML AMP IV ONE (12:00)
[2016-03-24] MEDS ORDERED: MIDAZOLAM HCL 2 MG/2 ML VIAL ONE (12:03)
[2016-03-24] MEDS ORDERED: FAMOTIDINE 20 MG/2 ML VIAL ONE (12:03)
[2016-03-24] MEDS ORDERED: GENTAMICIN SULFATE 80 MG/2 ML VIAL ONE (12:08)
[2016-03-24] MEDS ORDERED: ceFAZolin INJ 1,000 MG VIAL ONE ×2 (12:08→12:18)
[2016-03-24] MEDS ORDERED: CLINDAMYCIN PHOS 600 MG/4 ML VIAL ONE (12:09)
[2016-03-24] MEDS ORDERED: ACETAMINOPHEN 1000 MG/100 ML VIAL IV ONE (12:49)
[2016-03-24] MEDS ORDERED: HYDROmorphone HCL PF 2 MG/ML VIAL ONE (12:50)
--- NOTE | 2016-03-24 15:16 | RADRPT ---
EXAM DATE/TIME: 03/24/2016 14:31 [place] COMPARISON: FEMUR RIGHT (AP & LAT/2VWS), March 23, 2016, 14:30. INDICATIONS : Right femur fracture. MEDICAL HISTORY : None. SURGICAL HISTORY : None. ENCOUNTER: Subsequent ACUITY: 2 days PAIN SCORE: Non-responsive. LOCATION: Right femur FINDINGS: Fluoroscopic evaluation of the right hip demonstrate intramedullary kev and screws traversing a right proximal femoral metaphyseal fracture. Good alignment of osseous structures. CONCLUSION: Fluoroscopic support for surgical fixation of a right femoral metaphyseal fracture. Good anatomic ali gnment.. Opal Byrd MD on March 24, 2016 at 15:13 Board Certified Radiologist. This report was verified electronically.
[2016-03-24] MEDS ORDERED: DO NOT ADM ANY ANTICOAGULANT DRUGS XX PRN (15:45)
--- NOTE | 2016-03-24 16:16 | EKG ---
Date Performed: 03/23/2016 Time Performed: 15:01:00 PTAGE: 89 years EKG: Sinus rhythm WITH FIRST DEGREE AV BLOCK LEFT VENTRICULAR HYPERTROPHY AND ST-T CHANGE POSSIBLE SEPTAL MYOCARDIAL I NFARCTION Compared to prior tracing no significant change ABNORMAL ECG PREVIOUS TRACING : 12/12/2015 20.47 DOCTOR: Eliezer Can Interpretating Date/Time 03/24/2016 16:16:42
[2016-03-24 17:00] VITALS: BP 139/65; PULSE 74; RESP 16; TEMP 95.7; O2SAT 99
--- NOTE | 2016-03-24 17:55 | PD.OP ---
cc: Ted Short. Operative Report Date of Surgery: Mar 24, 2016 Preoperative Diagnosis: Right intertrochanteric/subtrochanteric femur fracture Postoperative Diagnosis: Same Procedure: Open treatment internal fixation right hip and proximal femur fracture with intramedullary kev Anesthesia: Gen. Surgeon: Ted Short Counter Professional(s): KRISTIE Lentz Operation and Findings: EBL: 200 cc INDICATION: Patient is an 89-year-old female who fell yesterday. She has evidence of a base of the neck intratrochanteric fracture that extends into the subtrochanteric region laterally and a reverse oblique fracture extending 3 inches below the lesser trochanter. She presents for surgical treatment. NOTE: Melina Lentz PA-C was present for the entire surgical procedure as my office manager executive assistant. In my medical opinion her skill and care was necessary for proper management of this patient PROCEDURE: The patient was brought to the operating room and anesthetized in the supine position. He was placed on the fracture table with the right leg held extended. The opposite leg was in the well leg stover. The hip fracture was reduced anatomically. The hip and leg was scrubbed with alcohol followed by Hibiclens followed by ChloraPrep. A timeout was done and antibiotics were given within 1 hour time window. A longitudinal incision was made over the lateral aspect of the proximal femur. Dissection continued down to the top of the greater trochanter. A cannulated awl was placed down through the top of the greater trochanter followed by placement of the guidepin along the shaft of the femur. We found that the subtrochanteric component tended opened. A separate incision was made laterally. A double 18-gauge cerclage wire was placed around the shaft of the femur holding this in a near anatomic location. This was tightened and held. This was reamed distally to 1 mm greater than the kev size and proximally to 17 mm. A separate incision was made laterally followed by placement of guidepin to the proper position of the femoral head. This is reamed and tapped in the proper length was placed up into the proper location. A single transverse screw was placed distally through the kev in a position above the suprafascial region. This was an extended trochanteric nail that was 330 mm long. Intraoperative x-rays were obtained. Alignment was satisfactory. No complication was noted. The wound was irrigated copiously. Hemostasis was controlled. The fascia was closed with interrupted Vicryl suture, subcutaneous tissue 2-0 Vicryl suture, skin with running intradermal 3-0 Vicryl followed by Steri-Strips and benzoin. A sterile dressing was applied The patient was awakened and taken to the recovery room in satisfactory condition. FINDINGS: This was a moderately unstable fracture. Final fixation was felt to be excellent. No complication was noted. Ted Short MD Mar 24, 2016 17:55
[2016-03-24] MEDS ORDERED: TEMAZEPAM 15 MG CAP PO PRN (18:00)
[2016-03-24] MEDS ORDERED: Post-op Orders (for Pharmacy) MISC XX ONE (18:00)
[2016-03-24] MEDS ORDERED: RIVAROXABAN 10 MG TAB PO SCH (18:00)
[2016-03-24] MEDS ORDERED: ALUMINUM/MAGNESIUM/SIMETH 30 ML CUP PO PRN (18:00)
[2016-03-24] MEDS ORDERED: NALOXONE HCL 0.4 MG/ML AMP IV PRN (18:00)
[2016-03-24] MEDS ORDERED: ACETAMINOPHEN/HYDROcodone 325 MG/5 MG TAB PO PRN (18:00)
[2016-03-24] MEDS ORDERED: SODIUM CHLORIDE 0.9% FLUSH 5 ML FLUSH IVF PRN (18:00)
[2016-03-24] MEDS ORDERED: BISACODYL 10 MG SUPP PR PRN (18:00)
[2016-03-24] MEDS ORDERED: MORPHINE SULFATE 8 MG/ML INJ IV PUSH PRN (18:00)
[2016-03-24] MEDS ORDERED: MORPHINE SULFATE 30 MG/30 ML PCA IV SCH (18:00)
[2016-03-24] MEDS ORDERED: ONDANSETRON HCL 4 MG/2 ML VIAL IVP PRN (18:00)
[2016-03-24] MEDS ORDERED: LACTATED RINGER'S 1000 ML INJ 1,000 ML IV SCH (18:00)
[2016-03-24] MEDS ORDERED: HYDR-3516 PO (18:10)
[2016-03-24 20:06] VITALS: O2SAT 98
[2016-03-24] MEDS: SODIUM CHLORIDE 0.9% FLUSH 5 ML FLUSH IVF SCH (20:17)
[2016-03-24 20:25] VITALS: BP 122/56; PULSE 86; RESP 16; TEMP 97; O2SAT 98
[2016-03-24] MEDS: PCA - TOTAL MG MORPHINE DELIVERED PER SHIFT SCH (20:27)
[2016-03-25] VITALS (8 sets, daily range): BP systolic 109–129; BP diastolic 53–60; PULSE 69–76; RESP 16–22; TEMP 95.4–96.7; O2SAT 95–97
[2016-03-25] MEDS: PCA - TOTAL MG MORPHINE DELIVERED PER SHIFT SCH ×3 (04:14→22:00)
[2016-03-25 05:42] LABS: HEMATOCRIT 28.8 % (35.0-46.0); REVIEW FLAG FINAL
--- NOTE | 2016-03-25 07:09 | MB ---
cc: FABRICE SPEARS M.D. DATE OF CONSULTATION 03/24/2016 REASON FOR CONSULTATION Fracture of the right hip. HISTORY This is an 89-year-old female who was with her daughter. The patient slipped on urine that was near her bathroom. She came down and fell on her right hip. She denies hitting her head and had no loss of consciousness or other constitutional symptoms. The patient is known to have had a previous pelvis fracture treated conservatively. The patient is on Eliquis for anticoagulation. I have been asked see her in consultation regarding the same. PAST MEDICAL HISTORY Significant for: 1. Anticoagulant therapy on Eliquis. 2. Pelvis fracture previously 3. Osteoarthritis 4. Atrial fibrillation 5. Breast cancer 6. Coronary artery disease 7. Hyperlipidemia 8. Multivalve cardiac disease 9. History of chest pain. 10. History of small bowel obstruction. 11. Diverticulosis 12. Gastroparesis 13. Gastroesophageal reflux disease 14. Hypertension 15. Pancreatitis 16. Hyperlipidemia PAST SURGICAL HISTORY 1. Hernia repair 2. CABG x1 3. Bilateral cataract 4. Bladder suspension 5. Left lumpectomy 6. Small bowel obstruction 7. Hysterectomy 8. Laminectomy L4-5 9. Tonsillectomy 10. Tricuspid and mitral ring surgery 11. Aortic valve replacement 12. Mastoid surgery FAMILY HISTORY A family history of hyperlipidemia. 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 She has two daughters that are very involved in her care. The patient is . ALLERGIES PENICILLIN, POLYSPORIN AND SULFA. MEDICATIONS 1. Vitamin E 2. Tylenol 3. Trazodone 4. Eliquis 5. Bioflex 6. Pacerone 7. Bethanechol 8. Ursodiol 9. Biotin 10. Metamucil 11. Multivitamins 12. Metoprolol 13. Niacin 14. Diovan 15. Magnesium 16. Aspirin 17. Calcium 18. Detrol 19. Protonix 20. Coreg 21. Lipitor REVIEW OF SYSTEMS Positive for musculoskeletal pain, otherwise all negative. EXAMINATION An elderly white female. Her daughter is at the bedside. She is lying in bed and oriented. HEENT: Normocephalic, atraumatic. Pupils equal, round. HEART: Regular rate and rhythm. There is a systolic murmur that is noted. CHEST: Clear to auscultation. ABDOMEN: Soft and nontender. MUSCULOSKELETAL: She is in Raza's traction on the right side. Distal pulses 2+/4. Sensation is normal distally. She wiggles her toes. X-RAYS AND REVIEW OF THE RADIOLOGISTS INTERPRETATION Shows evidence of a right peritrochanteric hip fracture with a reverse oblique subtrochanteric component. IMPRESSION Right peritrochanteric hip fracture/subtrochanteric hip fracture. PLAN Open treatment, internal fixation of right hip fracture with intramedullary kev and possible cerclage cable. CONSENT The risks for surgery including infection, bleeding, loss of motion, continued pain, need for further surgery, neurologic and vascular injury. The patient understands these issues and wishes to press on with surgery as outlined above. MD SHERRON Gandara/KARI /5:59 PM /7:01 AM
--- NOTE | 2016-03-25 07:38 | PD.ORT.PN ---
Subjective Subjective Remarks No complaints. Lying in bed. No new focal areas of pain Objective Vitals Vital Signs Date Time Temp Pulse Resp B/P Pulse Ox O2 Delivery O2 Flow Rate FiO2 03/25/16 04:00 96.1 71 22 124/58 96 03/25/16 00:00 96.7 76 18 109/53 95 03/24/16 20:25 97.0 86 16 122/56 98 03/24/16 20:06 98 Nasal Cannula 2.00 03/24/16 17:00 95.7 74 16 139/65 99 03/24/16 16:00 68 14 139/63 99 Nasal Cannula 3 03/24/16 15:45 67 14 131/63 97 Nasal Cannula 3 03/24/16 15:30 65 14 167/87 98 Nasal Cannula 3 03/24/16 15:15 98.2 63 14 111/52 96 Nasal Cannula 5 I/O 03/24/16 03/24/16 03/24/16 03/25/16 03/25/16 03/25/16 07:00 15:00 23:00 07:00 15:00 23:00 Intake Total 1010 ml 410 ml Output Total 840 ml 375 ml Balance 170 ml 35 ml Intake Oral 300 ml IV Total 110 ml 110 ml Other 900 ml Output Urine Total 375 ml Estimated Blood Loss 40 ml Other 800 ml # Bowel Movements 0 Result Diagram: 03/25/16 0510 03/23/16 1400 Objective Remarks Dressing dry. No significant swelling. No calf tenderness. Dorsalis pedis 2+. Neuro exam normal Assessment & Plan Ortho Post Op Day #: 1 Problem List: Assessment and Plan Right intertrochanteric/subtrochanteric hip fracture. ORIF IM kev, extended trochanteric nail, POD #1 PLAN: Nonweightbearing Resume Eloquis that she was on preop at low dose of 2.5 mg twice a day. Discharge to SNF, possibly Monday No dressing change [place] for pain Follow-up in 2 weeks Ted Short MD Mar 25, 2016 07:38
[2016-03-25] MEDS: PANTOPRAZOLE SOD 40 MG DELAYED RELEASE TAB PO SCH (09:07)
[2016-03-25] MEDS: ATORVASTATIN 20 MG TAB PO SCH (09:07)
[2016-03-25] MEDS: AMIODARONE 200 MG TAB PO SCH (09:07)
[2016-03-25] MEDS: URSODIOL 300 MG CAP PO SCH ×2 (09:07→21:41)
[2016-03-25] MEDS: VALSARTAN 160 MG TAB PO SCH (09:13)
[2016-03-25] MEDS: CARVEDILOL 12.5 MG TAB PO SCH ×2 (09:13→21:41)
[2016-03-25] MEDS: SODIUM CHLORIDE 0.9% FLUSH 5 ML FLUSH IVF SCH ×2 (09:16→21:41)
[2016-03-25] MEDS: APIXABAN 2.5 MG TABLET PO SCH ×2 (13:58→21:41)
--- NOTE | 2016-03-25 17:06 | HHI.PR ---
Subjective Remarks No acute chest pain No shortness of breath No headache Right leg/hip pain. Improved with Raza's traction Hard of hearing Pleasant affect No nausea vomiting. Nothing by mouth for surgery/ Objective Objective Results - Vital Signs Date Time Temp Pulse Resp B/P Pulse Ox O2 Delivery O2 Flow Rate FiO2 03/25/16 16:05 97 21 03/25/16 11:54 95.5 69 16 110/54 97 03/25/16 08:35 97 03/25/16 07:16 96.4 76 16 129/60 97 03/25/16 04:00 96.1 71 22 124/58 96 03/25/16 00:00 96.7 76 18 109/53 95 03/24/16 20:25 97.0 86 16 122/56 98 03/24/16 20:06 98 Nasal Cannula 2.00 I/O 03/24/16 03/24/16 03/24/16 03/25/16 03/25/16 03/25/16 07:00 15:00 23:00 07:00 15:00 23:00 Intake Total 1010 ml 410 ml Output Total 840 ml 375 ml Balance 170 ml 35 ml Intake Oral 300 ml IV Total 110 ml 110 ml Other 900 ml Output Urine Total 375 ml Estimated Blood Loss 40 ml Other 800 ml # Bowel Movements 0 Result Diagram: 03/25/16 0510 03/23/16 1400 Physical Exam Physical Exam PHYSICAL EXAMINATION: GENERAL: Thin, frail white female, looks to be her stated age. She is resting in bed, currently alert, oriented x3. She is a poor historian. Her daughter and granddaughter are at her bedside assisting. The patient can answer yes or no questions. HEENT: Atraumatic, normocephalic. PERRLA 2. No scleral icterus, no nasal drainage, mucous membranes are pale pink and moist. Tongue is midline. Trachea is midline. No JVD. CARDIOVASCULAR: Regular rate and rhythm. Systolic murmurs throughout her precordium. No rubs or gallops audible. RESPIRATORY: She is essentially clear to auscultation. No rales, rhonchi or wheezing. Low air volumes. Doesn't want to take a deep breath. ABDOMEN: Soft, non-tender, non-distended. Very small. Hernia noted which may be new. Active bowel sounds all four quadrants. MUSCULOSKELETAL: She moves extremities, upper extremities with purpose. She has equal hand mission manager. Lower extremities with purpose. Guarding right leg. She has no edema. Pulses 2+/4+. NEUROLOGIC: Awake, alert x2. No obvious cranial nerve deficits, 4/5 strength in her hands. Normal speech. Hard of hearing PSYCHIATRIC: Anxious .Insight is normal for age. Objective Remarks Im ready for surgery. (Whit Garcia) Objective Remarks Im hoping that my bowels will move. A/P Assessment and Plan ASSESSMENT AND PLAN: 1. Right closed hip fracture, S/P ORIF with kev. 2. Hyponatremia mild. 3. History of hypertension. 4. Coronary artery disease. 5. GERD. 6. History of CVA. 7. Hyperlipidemia. 8. Anxiety disorder ortho consult is appreciated for his expert opinion, patient is on blood thinner, Xarelto, stopped on admission. Pending surgery this a.m. surgery for repair performed yesterday a.m. Vital signs q4 and if warranted, will monitor for any fever, change in pulse, respirations or blood pressure. Monitor labs as warranted regular diet. Drinking minimal amounts of water and fluids. Encouraged to increase by mouth intake. Protonix for PUD prophylaxis. DVT prophylaxis. Eliquis restarted Supportive care and plan of care has been explained to the patient. pain management. We will follow her needs. Will leave Recio in this p.m. to monitor urine output and encourage by mouth intake. discontinue Recio in a.m. Labs in a.m. CBC and BMP. Monitor sodium level. Discharge Planning Home with support of daughter's versus rehabilitation postop Discussed With: Nurse, Family (daughter Elis is present.), Other (discussed with patient. Discussed with Dr. Mark. Patient seen on his behalf) Whit Garcia Mar 25, 2016 17:06
[2016-03-25] MEDS: ACETAMINOPHEN/HYDROcodone 325 MG/5 MG TAB PO PRN (17:50)
[2016-03-25] MEDS: DOCUSATE SODIUM 100 MG CAP PO SCH (21:41)
[2016-03-26] VITALS (7 sets, daily range): BP systolic 97–154; BP diastolic 43–69; PULSE 65–82; RESP 16–26; TEMP 95.4–97.7; O2SAT 97–98
[2016-03-26] MEDS: PCA - TOTAL MG MORPHINE DELIVERED PER SHIFT SCH ×3 (06:00→22:00)
[2016-03-26 06:34] LABS: HEMATOCRIT 24.5 % (35.0-46.0); MEAN CORPUSCULAR HEMOGLOBIN 30.2 PG (27.0-34.0); MEAN CORPUSCULAR HGB CONC 34.4 % (32.0-36.0); PLATELET COUNT 106 TH/MM3 (150-450); RED BLOOD COUNT 2.78 MIL/MM3 (4.00-5.30); RED CELL DISTRIBUTION WIDTH 14.6 % (11.6-17.2); REVIEW FLAG FINAL; WHITE BLOOD COUNT 13.3 TH/MM3 (4.0-11.0)
[2016-03-26 06:56] LABS: BICARBONATE 25.8 MEQ/L (21.0-32.0)
--- NOTE | 2016-03-26 07:50 | PD.ORT.PN ---
Subjective Subjective Remarks Mild to moderate right hip. 'Okay' when in bed. No new radiating leg pain. No other concerns. No CP or SOB. Questions about discharge. Objective Vitals Vital Signs Date Time Temp Pulse Resp B/P Pulse Ox O2 Delivery O2 Flow Rate FiO2 03/26/16 06:00 16 03/26/16 04:39 96.3 03/26/16 04:09 95.7 65 16 123/51 98 03/26/16 00:14 95.6 81 16 151/69 97 03/25/16 22:00 16 03/25/16 20:04 95.9 73 16 126/59 97 03/25/16 16:05 97 21 03/25/16 16:00 95.4 70 16 125/59 97 03/25/16 11:54 95.5 69 16 110/54 97 03/25/16 08:35 97 I/O 03/25/16 03/25/16 03/25/16 03/26/16 03/26/16 03/26/16 07:00 15:00 23:00 07:00 15:00 23:00 Intake Total 410 ml 600 ml 240 ml 240 ml Output Total 375 ml 150 ml 240 ml 425 ml Balance 35 ml 450 ml 0 ml -185 ml Intake Oral 300 ml 600 ml 240 ml 240 ml IV Total 110 ml Output Urine Total 375 ml 150 ml 240 ml 425 ml # Bowel Movements 0 0 0 Result Diagram: 03/26/16 0554 03/26/16 0554 Objective Remarks Sitting up in bed No acute distress, slightlyanxious RLE Dressing c/d/i, no new drainage, mild swelling, no erythema thigh and calf both supple, neg homans +Varicosities, +motor at, +sens, +nvi Assessment & Plan Ortho Post Op Day #: 2 Problem List: Assessment and Plan Right intertrochanteric/subtrochanteric hip fracture. ORIF IM kev, extended trochanteric nail, POD #2 PLAN: Ok to d/c today to SNF if cleared by medical. - PT - TTWBing RLE. Walker to assist w transitions. Eliquis 2.5mg bid (was on this preop) Hold dressing changes unless saturated. PO [place] for pain Follow-up in 2 weeks Monique Clinton Mar 26, 2016 07:50
[2016-03-26] MEDS: CARVEDILOL 12.5 MG TAB PO SCH ×2 (09:42→22:59)
[2016-03-26] MEDS: DOCUSATE SODIUM 100 MG CAP PO SCH ×2 (09:42→22:58)
[2016-03-26] MEDS: URSODIOL 300 MG CAP PO SCH ×2 (09:42→22:59)
[2016-03-26] MEDS: AMIODARONE 200 MG TAB PO SCH (09:42)
[2016-03-26] MEDS: PANTOPRAZOLE SOD 40 MG DELAYED RELEASE TAB PO SCH (09:42)
[2016-03-26] MEDS: VALSARTAN 160 MG TAB PO SCH (09:42)
[2016-03-26] MEDS: APIXABAN 2.5 MG TABLET PO SCH ×2 (09:43→22:59)
[2016-03-26] MEDS: SODIUM CHLORIDE 0.9% FLUSH 5 ML FLUSH IVF SCH ×2 (09:43→23:00)
[2016-03-26] MEDS: ATORVASTATIN 20 MG TAB PO SCH (09:51)
--- NOTE | 2016-03-26 15:03 | HHI.PR ---
Subjective Subjective Remarks BP running low 95-100s on multiple bp meds, given at 0900 per family, disoriented at times awake to voice, oriented to self, place, situation, others c/o pain only with movement, ok with Tylenol appetite poor no fever no cp no sob family at bsd Review of Systems Constitutional Constitutional Remarks 12 point ROS completed, unreliable Vitals/Results Intake & Output 03/25/16 03/25/16 03/26/16 15:00 23:00 07:00 Intake Total 600 ml 240 ml 240 ml Output Total 150 ml 240 ml 425 ml Balance 450 ml 0 ml -185 ml Intake Oral 600 ml 240 ml 240 ml Output Urine Total 150 ml 240 ml 425 ml # Bowel Movements 0 0 Vital Signs Vital Signs Date Time Temp Pulse Resp B/P Pulse Ox O2 Delivery O2 Flow Rate FiO2 03/26/16 08:00 95.6 70 26 154/61 97 03/26/16 06:00 16 03/26/16 04:39 96.3 03/26/16 04:09 95.7 65 16 123/51 98 03/26/16 00:14 95.6 81 16 151/69 97 03/25/16 22:00 16 03/25/16 20:04 95.9 73 16 126/59 97 03/25/16 16:05 97 21 03/25/16 16:00 95.4 70 16 125/59 97 CBC/BMP: 03/26/16 0554 03/26/16 0554 Lab Results Laboratory Tests Test 03/26/16 05:54 White Blood Count 13.3 TH/MM3 Red Blood Count 2.78 MIL/MM3 Hemoglobin 8.4 GM/DL Hematocrit 24.5 % Mean Corpuscular Volume 88.0 FL Mean Corpuscular Hemoglobin 30.2 PG Mean Corpuscular Hemoglobin 34.4 % Concent Red Cell Distribution Width 14.6 % Platelet Count 106 TH/MM3 Mean Platelet Volume 9.7 FL Sodium Level 126 MEQ/L Potassium Level 4.0 MEQ/L Chloride Level 92 MEQ/L Carbon Dioxide Level 25.8 MEQ/L Anion Gap 8 MEQ/L Blood Urea Nitrogen 19 MG/DL Creatinine 0.57 MG/DL Estimat Glomerular Filtration 100 ML/MIN Rate Random Glucose 105 MG/DL Calcium Level 7.5 MG/DL Physical Exam General General Appearance: Well Developed, No Acute Distress, Comfortable Eyes Eye Exam: Pupils Equal, Pupils Reactive Ears & Nose Ears & Nose Exam: Nasal Mucosa [place] Throat Throat Exam: Oral Mucosa [place] & Moist Neck Neck Exam: Neck Supple, Trachea Midline Pulmonary Resp Exam: No Distress, Decreased Bases Cardiology CV Exam: Regular Gastrointestinal/Abdomen GI Exam: Soft, Non-Tender, Bowel Sounds Present, Non-Distended Genitourinary Exam: Clear Urine Remarks MUÑOZ Musculoskeletal MS Exam: Joints Intact MS Remarks Right hip dressing D/I Integumentary Skin Exam: Warm, Dry Extremeties Extremities Exam: No Edema, Pedal Pulses Palpable Neurologic Neuro Exam: Alert, Awake, Speech Clear, Moving All Extremities, No Focal Deficits VTE Prophylaxis VTE Prophylaxis Device: SCDs VTE Remarks Eliquis Assessment/Plan Problem List: (1) Right intertrochanteric/subtrochanteric hip fracture (2) Atrial fibrillation (3) Coronary artery disease (4) ORIF IM kev, extended trochanteric nail (5) Anemia Plan: post op (6) Hyponatremia (7) Leukocytosis (8) History of CVA (cerebrovascular accident) Assessment/Plan S/P Right intertrochanteric/subtrochanteric femur fracture and ORIF with intramedullary kev 03/24 -appreciate ortho input -Eliquis for DVT prophylaxis -Post op care -PT, wound care, bowel regimen, pain management -add Tylenol PRN Anemia, sec. post op blood loss -HH 8.4/24, repeat CBC in am, may need PRBC transfusion Hyponatremia -NS at 50hr -BMP in am Hypotension, on multiple bp meds -add hold parameters to meds -Dec. Coreg -not taking PO much, hydrate cautiously NS at 50/hr Hx afib, stable -Continue home meds -Eliquis Hx CVA, stable -continue home meds Eliquis for DVT prophylaxis Monitor HH Labs in am Enc. PO intake, will order Boost Keep muñoz until tomorrow Continue with PT CM for dc planning D/W RN D/W pt, and family D/W Dr. Wynn This patient was seen by myself and Dr. Wynn, this note is written on his behalf. Problem Qualifiers (1) Atrial fibrillation: Qualified Code: I48.91 - Atrial fibrillation, unspecified type (2) Coronary artery disease: Qualified Code: I25.10 - Coronary artery disease involving [place] coronary artery of [place] heart without angina pectoris (3) Anemia: (4) Leukocytosis: Qualified Code: D72.829 - Leukocytosis, unspecified type Nery Purdy Mar 26, 2016 15:03
[2016-03-26] MEDS ORDERED: ACETAMINOPHEN 325 MG TAB PO PRN (15:30)
[2016-03-26] MEDS: SODIUM CHLOR 0.9% 1000 ML INJ 1,000 ML IV SCH (17:09)
[2016-03-26] MEDS: BETHANECHOL CHL 25 MG TAB PO SCH (18:16)
--- NOTE | 2016-03-26 18:26 | RADRPT ---
EXAM DATE/TIME: 03/26/2016 17:41 [facility] COMPARISON: CT BRAIN W/O CONTRAST, March 23, 2016, 15:34. INDICATIONS : General weakness. RADIATION DOSE: 44.32 CTDIvol (mGy) MEDICAL HISTORY : Hypertension. Carcinoma, breast. Renal failure. SURGICAL HISTORY : Tonsillectomy. Mastoid surgery. ENCOUNTER: Initial ACUITY: 1 day PAIN SCALE: 0/10 LOCATION: cranial TECHNIQUE: Multiple contiguous axial images were obtained of the head. Using automated exposure control and adj ustment of the mA and/or kV according to patient size, radiation dose was kept as low as reasonably a chievable to obtain optimal diagnostic quality images. FINDINGS: CEREBRUM: The ventricles are normal for age. No evidence of midline shift, mass lesion, hemorrhage or acute in farction. No extra-axial fluid collections are seen. POSTERIOR FOSSA: The cerebellum and brainstem are intact. The 4th ventricle is midline. The cerebellopontine angle i s unremarkable. EXTRACRANIAL: The visualized portion of the orbits is intact. SKULL: The calvaria is intact. No evidence of skull fracture. CONCLUSION: Negative noncontrast CT brain. Eb Carlos MD on March 26, 2016 at 18:24 Board Certified Radiologist. This report was verified electronically.
[2016-03-26] MEDS: traZODone HCL 50 MG TAB PO SCH (22:58)
[2016-03-26] MEDS: CALCIUM/VITAMIN D 250 MG/125 U TAB PO SCH (22:59)
[2016-03-26] MEDS: TOLTERODINE TARTRATE 4 MG CAP LA PO SCH (22:59)
[2016-03-27] VITALS (10 sets, daily range): BP systolic 106–152; BP diastolic 41–67; PULSE 78–87; RESP 16–18; TEMP 96–99.3; O2SAT 97–100
[2016-03-27 04:51] LABS: HEMATOCRIT 22.6 % (35.0-46.0); MEAN CELL VOLUME 88.6 FL (80.0-100.0); MEAN CORPUSCULAR HEMOGLOBIN 30.1 PG (27.0-34.0); PLATELET COUNT 101 TH/MM3 (150-450); RED BLOOD COUNT 2.55 MIL/MM3 (4.00-5.30); RED CELL DISTRIBUTION WIDTH 14.4 % (11.6-17.2); REVIEW FLAG FINAL; WHITE BLOOD COUNT 9.9 TH/MM3 (4.0-11.0)
[2016-03-27 05:10] LABS: BICARBONATE 25.5 MEQ/L (21.0-32.0); POTASSIUM 3.9 MEQ/L (3.5-5.1)
[2016-03-27 05:25] LABS: CALCIUM-PROTEIN CORRECTED 8.2 MG/DL (8.5-10.1)
[2016-03-27] MEDS ORDERED: SODIUM CHLOR 0.9% 250 ML INJ 250 ML IV ONE (08:00)
[2016-03-27] MEDS ORDERED: FUROSEMIDE 20 MG/2 ML VIAL IV ONE (08:00)
--- NOTE | 2016-03-27 08:08 | PD.ORT.PN ---
Subjective Subjective Remarks No complaints. Lying in bed. No new focal areas of pain For oral intake. Medical started IV fluids. Urine output has been low and Recio left in to monitor urine output Objective Vitals Vital Signs Date Time Temp Pulse Resp B/P Pulse Ox O2 Delivery O2 Flow Rate FiO2 03/27/16 00:00 98.0 79 16 128/52 97 03/26/16 20:00 97.6 77 16 119/50 97 03/26/16 16:00 97.7 82 20 99/62 98 03/26/16 12:00 95.4 73 20 97/43 97 I/O 03/26/16 03/26/16 03/26/16 03/27/16 03/27/16 03/27/16 07:00 15:00 23:00 07:00 15:00 23:00 Intake Total 240 ml 240 ml 360 ml 120 ml Output Total 425 ml 150 ml 250 ml 350 ml Balance -185 ml 90 ml 110 ml -230 ml Intake Oral 240 ml 240 ml 360 ml 120 ml Output Urine Total 425 ml 150 ml 250 ml 350 ml # Bowel Movements 0 1 Result Diagram: 03/27/16 0432 03/27/16 0432 Objective Remarks Sitting up in bed No acute distress RLE Dressing c/d/i, no new drainage, mild swelling, no erythema thigh and calf both supple, neg homans +Varicosities, +motor at, +sens, +nvi Assessment & Plan Ortho Post Op Day #: 3 Problem List: Assessment and Plan Right intertrochanteric/subtrochanteric hip fracture. ORIF IM kev, extended trochanteric nail, POD #3 PLAN: Ok to d/c to SNF when cleared by medical. - PT - TTWBing RLE. Walker to assist w transitions. Eliquis 2.5mg bid (was on this preop) Hold dressing changes unless saturated. PO [place] for pain Follow-up in 2 weeks Family requesting phone call and we'll try to place later. Transfuse 2 units PRBC. Hemoglobin 7.7 Ted Short MD Mar 27, 2016 08:08
[2016-03-27] MEDS: CALCIUM/VITAMIN D 250 MG/125 U TAB PO SCH ×2 (08:40→21:07)
[2016-03-27] MEDS: URSODIOL 300 MG CAP PO SCH ×2 (08:40→21:06)
[2016-03-27] MEDS: VALSARTAN 160 MG TAB PO SCH (08:41)
[2016-03-27] MEDS: BETHANECHOL CHL 25 MG TAB PO SCH ×3 (08:41→17:41)
[2016-03-27] MEDS: DOCUSATE SODIUM 100 MG CAP PO SCH ×2 (08:41→21:00)
[2016-03-27] MEDS: ATORVASTATIN 20 MG TAB PO SCH (08:41)
[2016-03-27] MEDS: APIXABAN 2.5 MG TABLET PO SCH ×2 (08:41→21:07)
[2016-03-27] MEDS: AMIODARONE 200 MG TAB PO SCH (08:42)
[2016-03-27] MEDS: CARVEDILOL 12.5 MG TAB PO SCH ×2 (08:42→21:07)
[2016-03-27] MEDS: PANTOPRAZOLE SOD 40 MG DELAYED RELEASE TAB PO SCH (08:42)
[2016-03-27] MEDS: SODIUM CHLORIDE 0.9% FLUSH 5 ML FLUSH IVF SCH ×2 (08:43→21:00)
--- NOTE | 2016-03-27 12:39 | HHI.PR ---
Subjective Subjective Remarks BP improved vasovagals when she got up to use commode awakes to voice, oriented x 2, talks to family frail no pain at this time no fever HH dropped, having PRBC has a congested cough Review of Systems Constitutional Constitutional Remarks 12 point ROS completed, unreliable Vitals/Results Intake & Output 03/26/16 03/26/16 03/27/16 15:00 23:00 07:00 Intake Total 240 ml 360 ml 120 ml Output Total 150 ml 250 ml 350 ml Balance 90 ml 110 ml -230 ml Intake Oral 240 ml 360 ml 120 ml Output Urine Total 150 ml 250 ml 350 ml # Bowel Movements 1 Vital Signs Vital Signs Date Time Temp Pulse Resp B/P Pulse Ox O2 Delivery O2 Flow Rate FiO2 03/27/16 11:41 97.8 78 18 127/46 100 03/27/16 11:26 96.6 78 18 106/41 100 03/27/16 09:20 99 21 03/27/16 08:00 96.0 79 18 140/63 98 03/27/16 00:00 98.0 79 16 128/52 97 03/26/16 20:00 97.6 77 16 119/50 97 03/26/16 16:00 97.7 82 20 99/62 98 CBC/BMP: 03/27/16 0432 03/27/16 0432 Lab Results Laboratory Tests Test 03/26/16 03/26/16 03/27/16 03/27/16 21:20 22:25 04:32 09:17 Urine Osmolality 522 MOSM/KG Serum Osmolality 259 MOSM/KG White Blood Count 9.9 TH/MM3 Red Blood Count 2.55 MIL/MM3 Hemoglobin 7.7 GM/DL Hematocrit 22.6 % Mean Corpuscular Volume 88.6 FL Mean Corpuscular Hemoglobin 30.1 PG Mean Corpuscular Hemoglobin 34.0 % Concent Red Cell Distribution Width 14.4 % Platelet Count 101 TH/MM3 Mean Platelet Volume 9.3 FL Sodium Level 126 MEQ/L Potassium Level 3.9 MEQ/L Chloride Level 93 MEQ/L Carbon Dioxide Level 25.5 MEQ/L Anion Gap 8 MEQ/L Blood Urea Nitrogen 19 MG/DL Creatinine 0.52 MG/DL Estimat Glomerular Filtration 111 ML/MIN Rate Random Glucose 90 MG/DL Calcium Level 7.3 MG/DL Protein Corrected Calcium 8.2 MG/DL Total Protein 5.4 GM/DL Blood Type A NEGATIVE Antibody Screen NEGATIVE Crossmatch Leukocyte-Reduced Red Blood Cells Blood Bank Comment Microbiology Microbiology 03/26/16 Stool Occult Blood ([facility]) - Final, Complete HEMOCCULT NEGATIVE Physical Exam General General Appearance: Well Developed, No Acute Distress, Comfortable Eyes Eye Exam: Pupils Equal, Pupils Reactive Ears & Nose Ears & Nose Exam: Nasal Mucosa [place] Throat Throat Exam: Oral Mucosa [place] & Moist Neck Neck Exam: Neck Supple, Trachea Midline Pulmonary Resp Exam: No Distress, Crackles, Rhonchi, Decreased Bases Cardiology CV Exam: Regular Gastrointestinal/Abdomen GI Exam: Soft, Non-Tender, Bowel Sounds Present, Non-Distended Genitourinary Exam: Clear Urine Remarks MUÑOZ Musculoskeletal MS Exam: Joints Intact MS Remarks Right hip dressing D/I Integumentary Skin Exam: Warm, Dry Extremeties Extremities Exam: No Edema, Pedal Pulses Palpable Neurologic Neuro Exam: Alert, Awake, Speech Clear, Moving All Extremities, No Focal Deficits VTE Prophylaxis VTE Prophylaxis Device: SCDs VTE Remarks Eliquis Assessment/Plan Problem List: (1) Right intertrochanteric/subtrochanteric hip fracture (2) Atrial fibrillation (3) Coronary artery disease (4) ORIF IM kev, extended trochanteric nail (5) Anemia Plan: post op (6) Hyponatremia (7) Leukocytosis (8) History of CVA (cerebrovascular accident) Assessment/Plan S/P Right intertrochanteric/subtrochanteric femur fracture and ORIF with intramedullary kev 03/24 -appreciate ortho input -Eliquis for DVT prophylaxis -Post op care -PT, wound care, bowel regimen, pain management -Tylenol PRN Anemia, sec. post op blood loss -HH 7.7/22.6, give 2 units PRBC with Lasix in between. D/W RN, decrease infusion rate -monitor for fluid overload -CBC in am -Stool OB negative Hyponatremia -Decrease IVF -BMP in am AMS yesterday, better today,- CT head done, negative Hypotension, on multiple bp meds, better now, -add hold parameters to meds -improving, monitor for now Hx afib, stable -Continue home meds -Eliquis Hx CVA, stable -continue home meds Eliquis for DVT prophylaxis Labs in am Enc. PO intake, continue Boost Keep muñoz until am Continue with PT CM for dc planning Labs in am D/W RN D/W pt, and family D/W Dr. Wynn This patient was seen by myself and Dr. Wynn, this note is written on his behalf. Problem Qualifiers (1) Atrial fibrillation: Qualified Code: I48.91 - Atrial fibrillation, unspecified type (2) Coronary artery disease: Qualified Code: I25.10 - Coronary artery disease involving [place] coronary artery of [place] heart without angina pectoris (3) Anemia: (4) Leukocytosis: Qualified Code: D72.829 - Leukocytosis, unspecified type Nery Purdy Mar 27, 2016 12:39
[2016-03-27] MEDS: SODIUM CHLOR 0.9% 1000 ML INJ 1,000 ML IV SCH ×2 (13:32→21:08)
[2016-03-27] MEDS: PCA - TOTAL MG MORPHINE DELIVERED PER SHIFT SCH ×2 (14:00→21:07)
[2016-03-27] MEDS: traZODone HCL 50 MG TAB PO SCH (20:59)
[2016-03-27] MEDS: TOLTERODINE TARTRATE 4 MG CAP LA PO SCH (21:07)
[2016-03-28] VITALS (8 sets, daily range): BP systolic 111–145; BP diastolic 53–67; PULSE 74–87; RESP 16–19; TEMP 96.4–97.5; O2SAT 95–98
[2016-03-28 05:17] LABS: HEMATOCRIT 31.9 % (35.0-46.0); MEAN CELL VOLUME 86.3 FL (80.0-100.0); MEAN CORPUSCULAR HEMOGLOBIN 29.8 PG (27.0-34.0); MEAN CORPUSCULAR HGB CONC 34.5 % (32.0-36.0); PLATELET COUNT 113 TH/MM3 (150-450); RED CELL DISTRIBUTION WIDTH 13.9 % (11.6-17.2); REVIEW FLAG FINAL; WHITE BLOOD COUNT 10.5 TH/MM3 (4.0-11.0)
[2016-03-28 05:44] LABS: BICARBONATE 28.3 MEQ/L (21.0-32.0); POTASSIUM 3.7 MEQ/L (3.5-5.1)
[2016-03-28] MEDS: PCA - TOTAL MG MORPHINE DELIVERED PER SHIFT SCH ×2 (06:00→14:00)
[2016-03-28] MEDS: SODIUM CHLORIDE 0.9% FLUSH 5 ML FLUSH IVF SCH ×2 (09:00→21:00)
[2016-03-28] MEDS: DOCUSATE SODIUM 100 MG CAP PO SCH ×2 (09:29→21:11)
[2016-03-28] MEDS: URSODIOL 300 MG CAP PO SCH ×2 (09:31→21:10)
[2016-03-28] MEDS: BETHANECHOL CHL 25 MG TAB PO SCH ×3 (09:32→17:56)
[2016-03-28] MEDS: CALCIUM/VITAMIN D 250 MG/125 U TAB PO SCH ×2 (09:32→21:11)
[2016-03-28] MEDS: CARVEDILOL 12.5 MG TAB PO SCH ×2 (09:33→21:12)
[2016-03-28] MEDS: PANTOPRAZOLE SOD 40 MG DELAYED RELEASE TAB PO SCH (09:33)
[2016-03-28] MEDS: VALSARTAN 160 MG TAB PO SCH (09:33)
[2016-03-28] MEDS: APIXABAN 2.5 MG TABLET PO SCH ×2 (09:33→21:12)
[2016-03-28] MEDS: ATORVASTATIN 20 MG TAB PO SCH (09:33)
[2016-03-28] MEDS: AMIODARONE 200 MG TAB PO SCH (09:44)
[2016-03-28] MEDS: traZODone HCL 50 MG TAB PO SCH (21:11)
[2016-03-28] MEDS: TOLTERODINE TARTRATE 4 MG CAP LA PO SCH (21:12)
[2016-03-29] VITALS (7 sets, daily range): BP systolic 125–174; BP diastolic 59–77; PULSE 71–84; RESP 16–20; TEMP 95.5–98.4; O2SAT 96–99
[2016-03-29] MEDS: DOCUSATE SODIUM 100 MG CAP PO SCH (09:00)
[2016-03-29] MEDS: SODIUM CHLORIDE 0.9% FLUSH 5 ML FLUSH IVF SCH ×2 (09:00→20:14)
[2016-03-29] MEDS: URSODIOL 300 MG CAP PO SCH ×2 (09:35→20:13)
[2016-03-29] MEDS: PANTOPRAZOLE SOD 40 MG DELAYED RELEASE TAB PO SCH (09:35)
[2016-03-29] MEDS: VALSARTAN 160 MG TAB PO SCH (09:35)
[2016-03-29] MEDS: CALCIUM/VITAMIN D 250 MG/125 U TAB PO SCH ×2 (09:36→20:14)
[2016-03-29] MEDS: APIXABAN 2.5 MG TABLET PO SCH ×2 (09:36→20:13)
[2016-03-29] MEDS: ATORVASTATIN 20 MG TAB PO SCH (09:36)
[2016-03-29] MEDS: BETHANECHOL CHL 25 MG TAB PO SCH ×3 (09:37→18:00)
[2016-03-29] MEDS: CARVEDILOL 12.5 MG TAB PO SCH ×2 (09:37→20:13)
[2016-03-29] MEDS: AMIODARONE 200 MG TAB PO SCH (09:37)
[2016-03-29 16:01] LABS: C. DIFF EPI 027 PRESUMPTIVE NEGATIVE (NEGATIVE); C. DIFF TOXIN PCR NEGATIVE (NEGATIVE)
--- NOTE | 2016-03-29 16:36 | HHI.PR ---
Subjective Interval History Alert, verbal, very anxious, pain well controlled, started to eat, ambulates with 2 assistants to the bedside commode Review of Systems Constitutional Constitutional Remarks Anxiety, general weakness, 10 systems reviewed and otherwise negative Vitals/Results Intake & Output 03/28/16 03/28/16 03/29/16 15:00 23:00 07:00 Intake Total 600 ml 240 ml 240 ml Output Total 250 ml Balance 350 ml 240 ml 240 ml Intake Oral 600 ml 240 ml 240 ml Output Urine Total 250 ml # Voids 0 3 4 # Bowel Movements 2 1 0 Vital Signs Vital Signs Date Time Temp Pulse Resp B/P Pulse Ox O2 Delivery O2 Flow Rate FiO2 03/29/16 12:00 95.5 83 16 125/59 99 03/29/16 10:29 98 21 03/29/16 08:00 95.7 82 16 174/77 97 03/29/16 04:00 96.4 74 18 154/72 96 03/29/16 00:15 96.5 72 18 126/60 97 03/28/16 20:25 97.0 79 19 137/63 98 03/28/16 18:31 98 21 CBC/BMP: 03/28/16 0446 03/28/16 0446 Physical Exam General General Appearance: Well Developed, No Acute Distress, Comfortable, Anxious Eyes Eye Exam: Pupils Equal, Pupils Reactive Ears & Nose Ears & Nose Exam: Nasal Mucosa [place] Throat Throat Exam: Oral Mucosa [place] & Moist Neck Neck Exam: Neck Supple, Trachea Midline Pulmonary Resp Exam: No Distress, Crackles, Rhonchi, Decreased Bases Cardiology CV Exam: Regular Gastrointestinal/Abdomen GI Exam: Soft, Non-Tender, Bowel Sounds Present, Non-Distended Genitourinary Exam: Clear Urine Musculoskeletal MS Remarks Right Lower extremity in clean dry dressing, Swollen, right thigh Integumentary Skin Exam: Warm, Dry Extremeties Extremities Exam: No Edema, Pedal Pulses Palpable Neurologic Neuro Exam: Alert, Awake, Speech Clear, Moving All Extremities, No Focal Deficits VTE Prophylaxis VTE Prophylaxis Device: SCDs Assessment/Plan Problem List: (1) Right intertrochanteric/subtrochanteric hip fracture (2) Atrial fibrillation (3) Coronary artery disease (4) ORIF IM kev, extended trochanteric nail (5) Anemia Plan: post op (6) Hyponatremia (7) Leukocytosis (8) History of CVA (cerebrovascular accident) Assessment/Plan S/P Right intertrochanteric/subtrochanteric femur fracture and ORIF with intramedullary kev 03/24 -Postoperative amenia, status post transfusion -Eliquis for DVT prophylaxis -Post op care -PT, wound care, bowel regimen, pain management -Tylenol PRN Hypotension, At times -add hold parameters to meds -improving, monitor for now Hx afib, stable -Continue home meds -Eliquis Hx CVA, stable -continue home meds Eliquis for DVT prophylaxis Enc. PO intake, continue Boost Discussed with family at length Continue with PT CM for dc planning Labs in am Problem Qualifiers (1) Atrial fibrillation: Qualified Code: I48.91 - Atrial fibrillation, unspecified type (2) Coronary artery disease: Qualified Code: I25.10 - Coronary artery disease involving [place] coronary artery of [place] heart without angina pectoris (3) Anemia: (4) Leukocytosis: Qualified Code: D72.829 - Leukocytosis, unspecified type Ras Wynn MD Mar 29, 2016 16:36 (4) Leukocytosis: Qualified Code: D72.829 - Leukocytosis, unspecified type Ras Wynn MD Mar 29, 2016 16:36
[2016-03-29] MEDS ORDERED: LOPERAMIDE HCL 2 MG CAP PO PRN (17:15)
[2016-03-29] MEDS: traZODone HCL 50 MG TAB PO SCH (20:13)
[2016-03-29] MEDS: TOLTERODINE TARTRATE 4 MG CAP LA PO SCH (20:14)
[2016-03-29 21:31] LABS: HEMATOCRIT 34.2 % (35.0-46.0); MEAN CELL VOLUME 89.3 FL (80.0-100.0); MEAN CORPUSCULAR HEMOGLOBIN 29.6 PG (27.0-34.0); MEAN CORPUSCULAR HGB CONC 33.2 % (32.0-36.0); PLATELET COUNT 159 TH/MM3 (150-450); RED BLOOD COUNT 3.83 MIL/MM3 (4.00-5.30); RED CELL DISTRIBUTION WIDTH 14.3 % (11.6-17.2); REVIEW FLAG FINAL; WHITE BLOOD COUNT 10.5 TH/MM3 (4.0-11.0)
[2016-03-29 22:07] LABS: BICARBONATE 26.9 MEQ/L (21.0-32.0)
[2016-03-29 22:08] LABS: POTASSIUM 4.6 MEQ/L (3.5-5.1)
[2016-03-30 00:38] VITALS: BP 148/67; PULSE 75; RESP 18; TEMP 97.2; O2SAT 98
[2016-03-30 04:25] VITALS: BP 153/71; PULSE 86; RESP 18; TEMP 96.6; O2SAT 97
[2016-03-30] MEDS: ACETAMINOPHEN/HYDROcodone 325 MG/5 MG TAB PO PRN ×2 (05:23→09:22)
[2016-03-30] MEDS: APIXABAN 2.5 MG TABLET PO SCH ×2 (07:28→20:01)
[2016-03-30] MEDS: URSODIOL 300 MG CAP PO SCH ×2 (07:28→20:01)
[2016-03-30] MEDS: VALSARTAN 160 MG TAB PO SCH (07:28)
[2016-03-30] MEDS: AMIODARONE 200 MG TAB PO SCH (07:29)
[2016-03-30] MEDS: PANTOPRAZOLE SOD 40 MG DELAYED RELEASE TAB PO SCH (07:29)
[2016-03-30] MEDS: CALCIUM/VITAMIN D 250 MG/125 U TAB PO SCH ×2 (07:29→22:11)
[2016-03-30] MEDS: CARVEDILOL 12.5 MG TAB PO SCH ×2 (07:29→20:01)
[2016-03-30] MEDS: ATORVASTATIN 20 MG TAB PO SCH (07:29)
[2016-03-30 08:00] VITALS: BP 152/71; PULSE 74; RESP 18; TEMP 95.6; O2SAT 96
[2016-03-30 12:00] VITALS: BP 123/63; PULSE 62; RESP 18; TEMP 96.9; O2SAT 95
[2016-03-30] MEDS: BETHANECHOL CHL 25 MG TAB PO SCH ×3 (13:00→18:00)
[2016-03-30 16:00] VITALS: BP 121/54; PULSE 73; RESP 18; TEMP 96.7; O2SAT 97
[2016-03-30] MEDS: SODIUM CHLOR 0.9% 1000 ML INJ 1,000 ML IV SCH (19:55)
[2016-03-30] MEDS: PCA - TOTAL MG MORPHINE DELIVERED PER SHIFT SCH ×2 (19:55→22:11)
[2016-03-30 20:00] VITALS: BP 176/76; PULSE 91; RESP 16; TEMP 99.2; O2SAT 96
[2016-03-30] MEDS: TOLTERODINE TARTRATE 4 MG CAP LA PO SCH (20:01)
[2016-03-30] MEDS: traZODone HCL 50 MG TAB PO SCH (20:01)
[2016-03-30] MEDS: SODIUM CHLORIDE 0.9% FLUSH 5 ML FLUSH IVF SCH (20:08)
[2016-03-31] VITALS: BP 137/63; PULSE 88; RESP 16; TEMP 99.3; O2SAT 95
[2016-03-31 04:00] VITALS: BP 119/58; PULSE 86; RESP 17; TEMP 97.6; O2SAT 94
[2016-03-31 08:00] VITALS: BP 147/64; PULSE 75; RESP 18; TEMP 96.6; O2SAT 97
[2016-03-31] MEDS: CARVEDILOL 12.5 MG TAB PO SCH (08:10)
[2016-03-31] MEDS: APIXABAN 2.5 MG TABLET PO SCH (08:11)
[2016-03-31] MEDS: AMIODARONE 200 MG TAB PO SCH (08:11)
[2016-03-31] MEDS: PANTOPRAZOLE SOD 40 MG DELAYED RELEASE TAB PO SCH (08:11)
[2016-03-31] MEDS: URSODIOL 300 MG CAP PO SCH (08:11)
[2016-03-31] MEDS: VALSARTAN 160 MG TAB PO SCH (08:11)
[2016-03-31] MEDS: BETHANECHOL CHL 25 MG TAB PO SCH ×3 (08:12→17:33)
[2016-03-31] MEDS: ATORVASTATIN 20 MG TAB PO SCH (08:12)
[2016-03-31] MEDS: CALCIUM/VITAMIN D 250 MG/125 U TAB PO SCH (08:12)
[2016-03-31 12:00] VITALS: BP 111/56; PULSE 69; RESP 18; TEMP 96.3; O2SAT 98
--- NOTE | 2016-03-31 12:34 | HHI.PR ---
Subjective Subjective Remarks sitting up in chair had BM remains weak awake, oriented x 2-3 eating fair, family bringing food from home no cp no sob HH stable waiting for insurance to approve SNF daughters worried that she is not bouncing back as quickly Review of Systems Constitutional Constitutional Remarks 12 point ROS completed, unreliable Vitals/Results Intake & Output 03/30/16 03/30/16 03/31/16 15:00 23:00 07:00 Intake Total 1200 ml 240 ml 360 ml Balance 1200 ml 240 ml 360 ml Intake Oral 1200 ml 240 ml 360 ml # Voids 4 1 3 # Bowel Movements 0 0 0 Vital Signs Vital Signs Date Time Temp Pulse Resp B/P Pulse Ox O2 Delivery O2 Flow Rate FiO2 03/31/16 08:00 96.6 75 18 147/64 97 03/31/16 04:00 97.6 86 17 119/58 94 03/31/16 00:00 99.3 88 16 137/63 95 03/30/16 20:00 99.2 91 16 176/76 96 03/30/16 19:55 18 03/30/16 16:00 96.7 73 18 121/54 97 CBC/BMP: 03/29/16201403/29/162014 Physical Exam General General Appearance: Well Developed, No Acute Distress, Comfortable Eyes Eye Exam: Pupils Equal, Pupils Reactive Ears & Nose Ears & Nose Exam: Nasal Mucosa [place] Throat Throat Exam: Oral Mucosa [place] & Moist Neck Neck Exam: Neck Supple, Trachea Midline Pulmonary Resp Exam: No Distress, Crackles, Decreased Bases Resp Remarks faint bibasilar rales Cardiology CV Exam: Regular Gastrointestinal/Abdomen GI Exam: Soft, Non-Tender, Bowel Sounds Present, Non-Distended Musculoskeletal MS Exam: Joints Intact MS Remarks Right hip dressing D/I Integumentary Skin Exam: Warm, Dry Extremeties Extremities Exam: No Edema, Pedal Pulses Palpable Neurologic Neuro Exam: Alert, Awake, Speech Clear, Moving All Extremities, No Focal Deficits VTE Prophylaxis VTE Prophylaxis Device: SCDs VTE Remarks Eliquis Assessment/Plan Problem List: (1) Right intertrochanteric/subtrochanteric hip fracture (2) Atrial fibrillation (3) Coronary artery disease (4) ORIF IM kev, extended trochanteric nail (5) Anemia Plan: post op (6) Hyponatremia (7) Leukocytosis (8) History of CVA (cerebrovascular accident) Assessment/Plan S/P Right intertrochanteric/subtrochanteric femur fracture and ORIF with intramedullary kev 03/24 -appreciate ortho input -Eliquis for DVT prophylaxis -Post op care -PT, wound care, bowel regimen, pain management -Tylenol PRN Anemia, sec. post op blood loss -HH 7.7/22.6 S/P 2 units PRBC-HH stable -HH stable -Stool OB negative Hyponatremia-stable -stable AMS yesterday, better today -CT head done, negative Hypotension, on multiple bp meds, better now, -add hold parameters to meds -improving, monitor for now Hx afib, stable -Continue home meds -Eliquis Hx CVA, stable -continue home meds Eliquis for DVT prophylaxis Enc. PO intake, continue Boost Continue with PT CM for dc planning-insurance has not approved SNF, pending Pt. is discharged to SNF when bed arranged. D/W RN D/W pt, and family D/W Dr. Wynn This patient was seen by myself and Dr. Wynn, this note is written on his behalf. Problem Qualifiers (1) Atrial fibrillation: Qualified Code: I48.91 - Atrial fibrillation, unspecified type (2) Coronary artery disease: Qualified Code: I25.10 - Coronary artery disease involving [place] coronary artery of [place] heart without angina pectoris (3) Anemia: (4) Leukocytosis: Qualified Code: D72.829 - Leukocytosis, unspecified type Nery Purdy Mar 31, 2016 12:34 (4) Leukocytosis: Qualified Code: D72.829 - Leukocytosis, unspecified type Nery Purdy Mar 31, 2016 12:34
[2016-03-31 16:00] VITALS: BP 162/69; PULSE 69; RESP 18; TEMP 97.3; O2SAT 99
[2016-03-31] MEDS: ACETAMINOPHEN/HYDROcodone 325 MG/5 MG TAB PO PRN (17:33)
--- NOTE | 2016-03-31 23:13 | HHI.PR ---
Subjective Interval History This is a belated note reflecting an encounter with this patient on 03/30/16 Alert, verbal, feeding well, had the best day today since admission Review of Systems Constitutional Constitutional Remarks Anxiety, general weakness, 10 systems reviewed and otherwise negative Vitals/Results Intake & Output 03/30/16 03/30/16 03/31/16 15:00 23:00 07:00 Intake Total 1200 ml 240 ml 360 ml Balance 1200 ml 240 ml 360 ml Intake Oral 1200 ml 240 ml 360 ml # Voids 4 1 3 # Bowel Movements 0 0 0 Vital Signs Vital Signs Date Time Temp Pulse Resp B/P Pulse Ox O2 Delivery O2 Flow Rate FiO2 03/31/16 16:00 97.3 69 18 162/69 99 03/31/16 12:00 96.3 69 18 111/56 98 03/31/16 08:00 96.6 75 18 147/64 97 03/31/16 04:00 97.6 86 17 119/58 94 03/31/16 00:00 99.3 88 16 137/63 95 CBC/BMP: 03/29/16201403/29/162014 Physical Exam General General Appearance: Well Developed, No Acute Distress, Comfortable, Anxious Eyes Eye Exam: Pupils Equal, Pupils Reactive Ears & Nose Ears & Nose Exam: Nasal Mucosa [place] Throat Throat Exam: Oral Mucosa [place] & Moist Neck Neck Exam: Neck Supple, Trachea Midline Pulmonary Resp Exam: No Distress, Crackles, Decreased Bases Cardiology CV Exam: Regular Gastrointestinal/Abdomen GI Exam: Soft, Non-Tender, Bowel Sounds Present, Non-Distended Musculoskeletal MS Remarks Right Lower extremity in clean dry dressing, Swollen, right thigh Integumentary Skin Exam: Warm, Dry Extremeties Extremities Exam: No Edema, Pedal Pulses Palpable Neurologic Neuro Exam: Alert, Awake, Speech Clear, Moving All Extremities, No Focal Deficits VTE Prophylaxis VTE Prophylaxis Device: SCDs Assessment/Plan Problem List: (1) Right intertrochanteric/subtrochanteric hip fracture (2) Atrial fibrillation (3) Coronary artery disease (4) ORIF IM kev, extended trochanteric nail (5) Anemia Plan: post op (6) Hyponatremia (7) Leukocytosis (8) History of CVA (cerebrovascular accident) Assessment/Plan S/P Right intertrochanteric/subtrochanteric femur fracture and ORIF with intramedullary kev 1/26 -Postoperative amenia, status post transfusion -Eliquis for DVT prophylaxis -Post op care -PT, wound care, bowel regimen, pain management -Tylenol PRN Hypotension, At times -add hold parameters to meds -improving, monitor for now Hx afib, stable -Continue home meds -Eliquis Hx CVA, stable -continue home meds Eliquis for DVT prophylaxis Enc. PO intake, continue Boost Discussed with family at length Continue with PT Discharged to rehabilitation tomorrow 03/31/16 Problem Qualifiers (1) Atrial fibrillation: Qualified Code: I48.91 - Atrial fibrillation, unspecified type (2) Coronary artery disease: Qualified Code: I25.10 - Coronary artery disease involving elem coronary artery of elem heart without angina pectoris (3) Anemia: (4) Leukocytosis: Qualified Code: D72.829 - Leukocytosis, unspecified type Ras Wynn MD Mar 31, 2016 23:13
--- NOTE | 2016-04-29 18:44 | HHI.DS ---
Discharge Summary Admission Date Mar 23, 2016 at 15:51 Discharge Date: Mar 26, 2016 Admitting Diagnosis hip fracture Brief History The patient was a pleasant 89 year-old white female who looked to be her stated age resting in bed. She was alert, oriented x2 to 3. Her two daughters were at her side assisting with her history. According to the daughters, and the patient agreed, the patient went to the bathroom. The seat was up on the toilet and she had urine that splattered over the side. The urine was on the floor. When the patient got up to go back to her room, she slipped and fell hitting her right hip. She denied hitting her head, denies loss of consciousness, denies any shortness of breath, any chest pain, any headache. No nausea, no vomiting, no diarrhea, no constipation. The patient had previous pelvic fractures in the past with multi-medical comorbidities. The patient was on Xarelto and took her blood thinners and/or other medications every day. Last known doses were this a.m. The patient denied any numbness or tingling in her extremities. She was currently comfortable, resting in bed. She denied any musculoskeletal pain, such as back pain or neck pain. She did have pain in the right lower extremity with any type of movement. Imaging Last Impressions Head CT 03/26/16 0000 Signed Impressions: Service Date/Time: Saturday, March 26, 2016 17:41 - CONCLUSION: Negative noncontrast CT brain. Eb Carlos MD Femur X-Ray 03/24/16 0000 Signed Impressions: Service Date/Time: February 14:31 - CONCLUSION: Fluoroscopic support for surgical fixation of a right femoral metaphyseal fracture. Good anatomic alignment.. Opal Byrd MD Hip and Pelvis X-Ray 03/23/16 1353 Signed Impressions: Service Date/Time: Wednesday, March 23, 2016 14:27 - CONCLUSION: Hip fracture as described above. Bertin Muniz MD FACR Chest X-Ray 03/23/16 1353 Signed Impressions: Service Date/Time: Wednesday, March 23, 2016 14:27 - CONCLUSION: No acute process Rivas Merino MD PE at Discharge General Appearance: Well Developed, No Acute Distress, Comfortable Eyes Eye Exam: Pupils Equal, Pupils Reactive Ears & Nose Ears & Nose Exam: Nasal Mucosa [place] Throat Throat Exam: Oral Mucosa [place] & Moist Neck Neck Exam: Neck Supple, Trachea Midline Pulmonary Resp Exam: No Distress, Crackles, Decreased Bases Resp Remarks faint bibasilar rales Cardiology CV Exam: Regular Gastrointestinal/Abdomen GI Exam: Soft, Non-Tender, Bowel Sounds Present, Non-Distended Musculoskeletal MS Exam: Joints Intact MS Remarks Right hip dressing D/I Integumentary Skin Exam: Warm, Dry Extremeties Extremities Exam: No Edema, Pedal Pulses Palpable Neurologic Neuro Exam: Alert, Awake, Speech Clear, Moving All Extremities, No Focal Deficits VTE Prophylaxis VTE Prophylaxis Device: SCDs VTE Remarks Eliquis Hospital Course These are the diagnosis used to treat this patient. (1) Right intertrochanteric/subtrochanteric hip fracture (2) Atrial fibrillation (3) Coronary artery disease (4) ORIF IM kev, extended trochanteric nail (5) Anemia (6) Hyponatremia (7) Leukocytosis (8) History of CVA (cerebrovascular accident) Plan S/P Right intertrochanteric/subtrochanteric femur fracture and ORIF with intramedullary kev 03/24 -appreciate ortho input done on admission. -Eliquis for DVT prophylaxis was given -Post op care per staff and physicians. -PT, wound care, bowel regimen, pain management -Tylenol PRN for temp, pain Anemia, sec. post op blood loss. She was given -HH 7.7/22.6 S/P 2 units PRBC-HH stable -HH stable after blood. -Stool OB negative Hyponatremia-stable -stable , medical management AMS yesterday, better today -CT head done, negative Hypotension, on multiple bp meds, better now after holding some of the meds. -add BP hold parameters to meds until blood pressure stablizes. -improving, monitor for now Hx afib, stable -Continue home meds Eliquis Hx CVA, stable -continue home meds Eliquis for DVT prophylaxis Enc. PO intake, continue Boost Continue with PT post surgery Patient progressed well and was seen and assessed before discharge. CM for dc planning-insurance has not approved SNF, pending Pt. is discharged to SNF when bed arranged. D/W RN, discharge planning Pt Condition on Discharge: Fair Discharge Disposition: Discharge to SNF Discharge Instructions DIET: Follow Instructions for: As Tolerated, No Restrictions Activities you can perform: Toe Touch Weight Bearing Follow up Referrals: Appointment for Follow Up - 2 Weeks with Ted Short MD New Medications: Hydrocodone-Acetaminophen (Hydrocodone-Acetaminophen) 5-325 mg Tab 1 TAB PO Q4H PRN PAIN LESS THAN 5 ON SCALE #50 TAB Continued Medications: Acetaminophen (Tylenol) 325 Mg Tab 650 MG PO Q6H PRN PAIN 1-10 AND/OR FEVER >101F Ref 0 TAB Amiodarone (Amiodarone) 100 Mg Tab 100 MG PO DAILY Regulate Heart Beat #30 Ref 0 TAB Apixaban (Eliquis) 2.5 Mg Tab 2.5 MG PO BID Blood Clot Prevention Ref 0 TAB Atorvastatin (Lipitor) 20 Mg Tab 20 MG PO HS Cholesterol Management #30 Ref 0 TAB Bethanechol (Bethanechol) 25 Mg Tab 12.5 MG PO TID 30 minutes before meals Urinary Symptom Managemen Ref 0 TAB Biotin (Biotin) 1,000 Mcg Tab 1000 MCG PO HS #1 BOTTLE Calcitonin ([place]) Nasal [place] (Miacalcin Nasal [place]) 200 Units/Act Soln 1 SPRAY NASAL DAILY Alternate 1 nostril every other day Oteoporosis #3.7 Ref 0 ML Calcium Carbonate-Cholecalciferol (Caltrate 600+D) 600-800 Mg-Unit Tab 1 TAB PO BID Calcium Supplement Ref 0 TAB Carvedilol (Coreg) 25 Mg Tab 25 MG PO BID #60 Ref 0 TAB Docusate Sodium (Colace Clear) 50 Mg Cap 50 MG PO DAILY PRN CONSTIPATION Glucosamine (Glucosamine) 1,500 Mg Tab 1500 MG PO HS Herbal Supplements Ref 0 TAB Magnesium Oxide (Magnesium Oxide) 400 Mg Tab 400 MG PO DAILY Nutritional Supplement Ref 0 TAB Multiple Vitamin (Multi Vitamin) 1 Tab Tab 1 TAB PO DAILY TAB Pantoprazole (Protonix) 40 Mg Tab 40 MG PO HS Reflux #30 Ref 0 TAB Polyethylene Glycol 3350 Powder (Miralax Powder) 17 Gm Powd 17 GM PO HS Mix and dissolve one measuring cap-ful (17 grams) in water or juice. Constipation #1 Ref 0 BOTTLE Trazodone (Trazodone) 50 Mg Tab 50 MG PO HS Control Depression #30 Ref 0 TAB Ursodiol (Ursodiol) 300 Mg Cap 300 MG PO BID Gallstones #60 Ref 0 CAP Valsartan (Diovan) 160 Mg Tab 160 MG PO DAILY #30 Ref 0 TAB Discontinued Medications: Aspirin DR (Aspirin Adult Low Strength) 81 Mg Tabdr 81 MG PO DAILY TAB Ibandronate (Boniva) 150 Mg Tab 150 MG PO MONTHLY #1 Ref 0 TAB Niacinamide (Niacin) 500 Mg Tab 500 MG PO DAILY Tolterodine ER (Detrol LA) 4 Mg Cap 4 MG PO HS Urinary Symptom Managemen #30 Ref 0 CAP Vitamin E (Vitamin E) 400 Unit Tab 400 UNITS PO DAILY Nutritional Supplement Ref 0 TAB Whit Garcia Apr 29, 2016 18:44 Whit Garcia Apr 29, 2016 18:44
== END 2016-03-31 17:50 | DRG 481 ==
LOC: NEPE 13:36 → NEDA 15:51 → NEDH 20:11 → N06B 03-24 16:53 → N06A 03-25 17:43
PROVIDERS: ADMIT Specialist; ATTEND Specialist
PROC: 0QS606Z Reposition Right Upper Femur with Intramedullary Internal Fixation Device, Open Approach (ICD-10-PCS; principal; 2016-03-24 13:01)
PROC: 30233N1 Transfusion of Nonautologous Red Blood Cells into Peripheral Vein, Percutaneous Approach (ICD-10-PCS; 2016-03-27)
DX: S72.141A Displaced intertrochanteric fracture of right femur, initial encounter for closed fracture (principal); E87.1 Hypo-osmolality and hyponatremia; I95.9 Hypotension, unspecified; I08.3 Combined rheumatic disorders of mitral, aortic and tricuspid valves; K31.84 Gastroparesis; I48.91 Unspecified atrial fibrillation; D64.9 Anemia, unspecified; I10 Essential (primary) hypertension; S72.21XA Displaced subtrochanteric fracture of right femur, initial encounter for closed fracture; E78.5 Hyperlipidemia, unspecified; I25.10 Atherosclerotic heart disease of native coronary artery without angina pectoris; M19.90 Unspecified osteoarthritis, unspecified site; K21.9 Gastro-esophageal reflux disease without esophagitis; D72.829 Elevated white blood cell count, unspecified; F41.9 Anxiety disorder, unspecified; H91.90 Unspecified hearing loss, unspecified ear; W01.0XXA Fall on same level from slipping, tripping and stumbling without subsequent striking against object, initial encounter; Z79.01 Long term (current) use of anticoagulants; Z86.73 Personal history of transient ischemic attack (TIA), and cerebral infarction without residual deficits; Z88.0 Allergy status to penicillin; Z88.1 Allergy status to other antibiotic agents; Z88.2 Allergy status to sulfonamides; Z95.2 Presence of prosthetic heart valve; Z85.3 Personal history of malignant neoplasm of breast; Z95.5 Presence of coronary angioplasty implant and graft
CPT/HCPCS: 36430; 70450; 71010; 73502; 73552; 76000; 80048; 81001; 82272; 83930; 83935; 84155; 85014; 85018; 85025; 85027; 85610; 85730; 86850; 86900; 86901; 86920; 87493; 93005; 94150; 96374; 96375; C1713; J0131; J0690; J1170; J1580; J1940; J2250; J2270; J2405; J7030; J7050; P9016

== ENCOUNTER 2016-12-08 04:55 | Emergency (ER) | payer MEDICARE ==
[~2016-12-08] VITALS: Ht 149.9 cm; Wt 46.5 kg
[~2016-12-08 04:55] MED LIST changes: -ACET1CAP18 PO; +AMIO0.1T PO; -AMLO10 PO; -ASPI81TA11 OR; -ATOR20TA42 PO; -BETH25TA PO; +BETH25TA2 PO; -BIOFTAB PO; +BIOT1000 PO; -BIOT10004 PO; -BONI150T PO; +CALC1TAB34 PO; -CALTCHW4 OR; -CARV12.52 PO; +CORE25TA PO; -DETR2TAB OR; +DIOV160T6 PO; -DIOV320T PO; +DOCU1CAP21 PO; +GLUC15009 PO; +HYDR-3516 PO; -HYDR-3533 PO; +LIPI20TA PO; -MAGN400T PO; +MAGN400T2 PO; -META0.52 PO; -METO50TA PO; +MIAC200S NASAL; +MIRA3350 PO; +MULT-65 PO; -NIAC500T5 PO; -PACE100T2 PO; -PERI8.6T PO; -TAB-TAB PO; +TRAZ50TA12 PO; -TRAZ50TA4 PO; +TYLE325T PO; +URSO300C2 PO; -URSO300C3 PO; -VITA400C70 PO
[2016-12-08 04:56] VITALS: BP 192/84; PULSE 67; RESP 16; TEMP 98.6; O2SAT 97
[2016-12-08 05:26] VITALS: BP 160/75; PULSE 62; RESP 17; O2SAT 98
--- NOTE | 2016-12-08 05:37 | PD ---
HPI Chief Complaint: Fall Time Seen by Provider: 05:26 Travel History International Travel<30 days: No Contact w/Intl Traveler<30days: No Traveled to known affect area: No History of Present Illness HPI 89-year-old female complains of neck pain. Patient states that she tripped and fell yesterday. Patient denied loss of consciousness. Patient denies any headache. Patient complained of neck pain. Patient denies any chest pain or shortness of breath. Patient denies abdominal pain. Patient denies any back pain. Patient denies any focal weakness or numbness of extremity. Patient denies any other injury. PFSH Past Medical History Hx Anticoagulant Therapy: Yes Arthritis: Yes (OSTEOARTHRITIS) Atrial Fibrillation: Yes (WITH SVT) Autoimmune Disease: No Heart Rhythm Problems: No Cancer: Yes (Breast cancer) Cardiac Catheterization: Yes Cardiovascular Problems: Yes (HTN) High Cholesterol: Yes Chest Pain: Yes Cerebrovascular Accident: No Diabetes: No Diminished Hearing: Yes Diverticulitis: Yes Endocrine: No Gastrointestinal Disorders: Yes (Gastroparesis) GERD: Yes Genitourinary: No Hypertension: Yes Immune Disorder: No Musculoskeletal: Yes (Right pubic fracture, arthritis) Neurologic: Yes Psychiatric: No Reproductive: No Respiratory: No Immunizations Current: Yes Migraines: No Pancreatitis: Yes Seizures: No Thyroid Disease: No Triglycerides - High: Yes Ulcer: No Menopausal: Yes Past Surgical History Abdominal Surgery: Yes (HERNIA REPAIR) Cardiac Surgery: Yes (CABG) 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) Eye Surgery: Yes (BILATERAL CATARACTS) Genitourinary Surgery: Yes (BLADDER SLING) Gynecologic Surgery: Yes ( L LUMPECTOMY (BENIGN)) Hysterectomy: Yes Thoracic Surgery: Yes Tonsillectomy: Yes Valve Replacement: Yes (AORTIC VALVE) Other Surgery: Yes (MASTOID SURGERY ) Family History Family Hypercholesterolemia: Yes Social History Alcohol Use: Yes (RARE) Tobacco Use: No Substance Use: No Allergies-Medications (Allergen,Severity, Reaction): Coded Allergies: Sulfa (Sulfonamide Antibiotics) (Verified Allergy, Severe, 12/08/16) penicillin G (Verified Allergy, Severe, JAUNDICED, 12/08/16) bacitracin (Verified Adverse Reaction, Severe, 12/08/16) polymyxin B (Verified Adverse Reaction, Severe, 12/08/16) Reported Meds & Prescriptions Reported Meds & Active Scripts Active Hydrocodone-Acetaminophen 5-325 mg Tab 1 Tab PO Q4H PRN Reported Miralax Powder (Polyethylene Glycol 3350 Powder) 17 Gm Powd 17 Gm PO HS Mix and dissolve one measuring cap-ful (17 grams) in water or juice. Caltrate 600+D Plus Minerals (Calcium Carbonate-Vitamin D W/Minerals) 600-800 Mg -Unit Tab 1 Tab PO BID Multi-Vitamin Daily (Multiple Vitamin) 1 Tab Tab 1 Tab PO DAILY Colace Clear (Docusate Sodium) 50 Mg Cap 50 Mg PO DAILY PRN Tylenol (Acetaminophen) 325 Mg Tab 650 Mg PO Q6H PRN Ursodiol 300 Mg Cap 300 Mg PO BID Biotin 1,000 Mcg Tab 1,000 Mcg PO HS Trazodone (Trazodone HCl) 50 Mg Tab 50 Mg PO HS Glucosamine 1,500 Mg Tab 1,500 Mg PO HS Magnesium Oxide 400 Mg Tab 400 Mg PO DAILY Protonix (Pantoprazole Sodium) 40 Mg Tab 40 Mg PO HS Lipitor (Atorvastatin Calcium) 20 Mg Tab 20 Mg PO HS Coreg (Carvedilol) 25 Mg Tab 25 Mg PO BID Bethanechol 25 Mg Tab 12.5 Mg PO TID 30 minutes before meals Miacalcin Nasal [place] (Calcitonin [place]) 200 Units/Act Soln 1 [place] NASAL DAILY Alternate 1 nostril every other day Diovan (Valsartan) 160 Mg Tab 160 Mg PO DAILY Amiodarone (Amiodarone HCl) 100 Mg Tab 100 Mg PO DAILY Eliquis (Apixaban) 2.5 Mg Tab 2.5 Mg PO BID Review of Systems General / Constitutional: No: Fever Eyes: No: Visual changes HENT: Positive: Neck Pain, No: Headaches Cardiovascular: No: Chest Pain or Discomfort Respiratory: No: Shortness of Breath Gastrointestinal: No: Abdominal Pain Genitourinary: No: Dysuria Musculoskeletal: No: Pain Skin: No Rash Neurologic: No: Weakness Psychiatric: No: Depression Endocrine: No: Polydipsia Hematologic/Lymphatic: No: Easy Bruising Physical Exam Narrative GENERAL: Well-nourished, well-developed patient. SKIN: Focused skin assessment warm/dry. HEAD: Normocephalic. EYES: No scleral icterus. No injection or drainage. NECK: Supple, trachea midline. No JVD or lymphadenopathy. Patient has moderate tenderness on palpation paraspinal areas cervical spine. No midline tenderness. CARDIOVASCULAR: Regular rate and rhythm without murmurs, gallops, or rubs. RESPIRATORY: Breath sounds equal bilaterally. No accessory muscle use. GASTROINTESTINAL: Abdomen soft, non-tender, nondistended. MUSCULOSKELETAL: No cyanosis, or edema. BACK: Nontender without obvious deformity. No CVA tenderness. Neurologic exam normal. Data Data Last Documented VS Vital Signs Date Time Temp Pulse Resp B/P (MAP) Pulse Ox O2 Delivery O2 Flow Rate FiO2 12/08/16 05:26 62 17 160/75 (103) 98 Room Air 12/08/16 04:[address] Cerv Spine W/O Contrast (12/08/16 05:31) MDM Medical Decision Making Medical Screen Exam Complete: Yes Emergency Medical Condition: Yes Interpretation(s) Last Impressions Cervical Spine CT 12/08/16530 Signed Impressions: Service Date/Time: , December 08, 2016 05:59 - CONCLUSION: Fractures of the anterior ring of C1 and the base of the dens as described. Maciej Yarbrough MD Differential Diagnosis Differential diagnosis including strain, fracture, HNP. Narrative Course 89-year-old female with neck pain. Status post fall. Spoke with neurosurgeon, Dr. Michael. Advised [place] collar and follow-up in the office. Diagnosis Primary Impression: Fracture of C1 vertebra, closed Qualified Codes: S12.091A - Other nondisplaced fracture of first cervical vertebra, initial encounter for closed fracture Additional Impression: Fracture of C2 vertebra, closed Qualified Codes: S12.112A - Nondisplaced type ii dens fracture, initial encounter for closed fracture Patient Instructions: General Instructions Additional Instructions: Tylenol for pain. Follow-up with neurosurgeon. Med/Other Pt SpecificInfo: No Change to Meds Disposition: 01 DISCHARGE HOME Condition: Stable Feliciano Lezama MD Dec 08, 2016 05:37
--- NOTE | 2016-12-08 06:27 | RADRPT ---
EXAM DATE/TIME: 12/08/2016 05:59 [facility] COMPARISON: CT BRAIN W/O CONTRAST, March 26, 2016, 17:41. INDICATIONS : Fall, neck pain. RADIATION DOSE: 14.40 CTDIvol (mGy) MEDICAL HISTORY : Hypertension. SURGICAL HISTORY : Tonsillectomy. cataract surgery ENCOUNTER: Initial ACUITY: 1 day PAIN SCALE: 8/10 LOCATION: neck TECHNIQUE: Volumetric scanning of the cervical spine was performed. Multiplanar reconstructions in the sagittal, coronal and oblique axial planes were performed. Using automated exposure control and adjustment o f the mA and/or kV according to patient size, radiation dose was kept as low as reasonably achievable to obtain optimal diagnostic quality images. DICOM format image data is available electronically f or review and comparison. FINDINGS: There is an oblique minimally displaced fracture involving the anterior ring of C1. A base of dens fr acture is also present with slight posterior angulation and displacement. There is no evidence of ass ociated canal compromise. Elsewhere, there is minimal anterolisthesis C5 relative to C6 which appears degenerative. The posterior facets align satisfactorily. There is moderate posterior facet arthropat hy at multiple levels, generally worse on the left than the right. There is no evidence of bony andrae inal compromise. No evidence of paraspinal hematoma. CONCLUSION: Fractures of the anterior ring of C1 and the base of the dens as described. Maciej Yarbrough MD on December 08, 2016 at 6:21 Board Certified Radiologist. This report was verified electronically.
--- NOTE | 2016-12-08 12:26 | EKG ---
Date Performed: 12/08/2016 Time Performed: 05:28:41 PTAGE: 89 years EKG: Sinus rhythm LEFT VENTRICULAR HYPERTROPHY AND ST-T CHANGE ABNORMAL ECG Compared to prior tracing no significant c lidia DOCTOR: Merna Francois Interpretating Date/Time 12/08/2016 12:22:40
== END 2016-12-08 08:20 | disposition home or self-care (01) ==
LOC: NEPE 04:55
DX: S12.091A Other nondisplaced fracture of first cervical vertebra, initial encounter for closed fracture (principal); S12.191A Other nondisplaced fracture of second cervical vertebra, initial encounter for closed fracture; I48.91 Unspecified atrial fibrillation; I10 Essential (primary) hypertension; E78.00 Pure hypercholesterolemia, unspecified; R94.31 Abnormal electrocardiogram [ECG] [EKG]; W19.XXXA Unspecified fall, initial encounter; Z79.01 Long term (current) use of anticoagulants
CPT/HCPCS: 72125; 93005; 99284; L0150; L0172

== ENCOUNTER 2016-12-15 08:56 | Emergency (ER) | payer MEDICARE ==
[~2016-12-15] VITALS: Ht 152.4 cm; Wt 50.0 kg
[2016-12-15 08:58] VITALS: BP 145/65; PULSE 72; RESP 12; TEMP 97.8; O2SAT 98
--- NOTE | 2016-12-15 09:17 | PD ---
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 Yañez, neurosurgeon, for her neck brace to be refitted. She has stable fractures of C1 and C2. Family is concerned because the neck brace is not fitting right and its breaking down the skin around her neck. Patient denies pain at this time. Has been taking Motrin for symptom management. Symptoms are mild in severity. Has no other medical complaints. Allergies to sulfa, bacitracin, penicillin, polymyxin. No other modifying factors or associated signs and symptoms. PFSH Past Medical History Hx Anticoagulant Therapy: Yes Arthritis: Yes (OSTEOARTHRITIS) Atrial Fibrillation: Yes (WITH SVT) Autoimmune Disease: No Heart Rhythm Problems: No Cancer: Yes (Breast cancer) Cardiac Catheterization: Yes Cardiovascular Problems: Yes High Cholesterol: Yes Chest Pain: Yes Cerebrovascular Accident: No Diabetes: No Diminished Hearing: Yes Diverticulitis: Yes Endocrine: No Gastrointestinal Disorders: Yes (Gastroparesis) GERD: Yes Genitourinary: No Hypertension: Yes Immune Disorder: No Musculoskeletal: Yes (Right pubic fracture, arthritis) Neurologic: Yes Psychiatric: No Reproductive: No Respiratory: No Immunizations Current: Yes Migraines: No Pancreatitis: Yes Seizures: No Thyroid Disease: No Triglycerides - High: Yes Ulcer: No ?: Not Menopausal: Yes Past Surgical History Abdominal Surgery: Yes (HERNIA REPAIR) Cardiac Surgery: Yes (CABG) 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) Eye Surgery: Yes (BILATERAL CATARACTS) Genitourinary Surgery: Yes (BLADDER SLING) Gynecologic Surgery: Yes ( L LUMPECTOMY (BENIGN)) Hysterectomy: Yes Thoracic Surgery: Yes Tonsillectomy: Yes Valve Replacement: Yes (AORTIC VALVE) Other Surgery: Yes (MASTOID SURGERY ) Family History Family Hypercholesterolemia: Yes Social History Alcohol Use: Yes (RARE) Tobacco Use: No Substance Use: No Allergies-Medications (Allergen,Severity, Reaction): Coded Allergies: Sulfa (Sulfonamide Antibiotics) (Verified Allergy, Severe, 12/08/16) penicillin G (Verified Allergy, Severe, JAUNDICED, 12/08/16) bacitracin (Verified Adverse Reaction, Severe, 12/08/16) polymyxin B (Verified Adverse Reaction, Severe, 12/08/16) Reported Meds & Prescriptions Reported Meds & Active Scripts Active Hydrocodone-Acetaminophen 5-325 mg Tab 1 Tab PO Q4H PRN Reported Miralax Powder (Polyethylene Glycol 3350 Powder) 17 Gm Powd 17 Gm PO HS Mix and dissolve one measuring cap-ful (17 grams) in water or juice. Caltrate 600+D Plus Minerals (Calcium Carbonate-Vitamin D W/Minerals) 600-800 Mg -Unit Tab 1 Tab PO BID Multi-Vitamin Daily (Multiple Vitamin) 1 Tab Tab 1 Tab PO DAILY Colace Clear (Docusate Sodium) 50 Mg Cap 50 Mg PO DAILY PRN Tylenol (Acetaminophen) 325 Mg Tab 650 Mg PO Q6H PRN Ursodiol 300 Mg Cap 300 Mg PO BID Biotin 1,000 Mcg Tab 1,000 Mcg PO HS Trazodone (Trazodone HCl) 50 Mg Tab 50 Mg PO HS Glucosamine 1,500 Mg Tab 1,500 Mg PO HS Magnesium Oxide 400 Mg Tab 400 Mg PO DAILY Protonix (Pantoprazole Sodium) 40 Mg Tab 40 Mg PO HS Lipitor (Atorvastatin Calcium) 20 Mg Tab 20 Mg PO HS Coreg (Carvedilol) 25 Mg Tab 25 Mg PO BID Bethanechol 25 Mg Tab 12.5 Mg PO TID 30 minutes before meals Miacalcin Nasal [place] (Calcitonin [place]) 200 Units/Act Soln 1 [place] NASAL DAILY Alternate 1 nostril every other day Diovan (Valsartan) 160 Mg Tab 160 Mg PO DAILY Amiodarone (Amiodarone HCl) 100 Mg Tab 100 Mg PO DAILY Eliquis (Apixaban) 2.5 Mg Tab 2.5 Mg PO BID Review of Systems Except as stated in HPI: all other systems reviewed are Neg Physical Exam Narrative GENERAL: Well-nourished, well-developed elderly, female patient, in no acute distress SKIN: Warm and dry. HEAD: Atraumatic. Normocephalic. EYES: Pupils equal and round. No scleral icterus. No injection or drainage. ENT: Mucosa pink and moist. Airway patent. NECK: [place] J collar in place. CARDIOVASCULAR: Regular rate. RESPIRATORY: No accessory muscle use. GASTROINTESTINAL: Rounded. MUSCULOSKELETAL: No obvious deformities. No clubbing. No cyanosis. No edema. NEUROLOGICAL: Awake and alert. Oriented 3. No obvious cranial nerve deficits. Motor grossly within normal limits. Normal speech. PSYCHIATRIC: Appropriate mood and affect; insight and judgment normal. Data Data Last Documented VS Vital Signs Date Time Temp Pulse Resp B/P (MAP) Pulse Ox O2 Delivery O2 Flow Rate FiO2 12/15/16 08:58 97.8 72 12 145/65 (91) 98 Orders Orders Ed Discharge Order (12/15/16 09:25) MDM Medical Decision Making Medical Screen Exam Complete: Yes Emergency Medical Condition: Yes Medical Record Reviewed: Yes Differential Diagnosis Medical clearance, medical coding specialist check, medical coding specialist replacement Narrative Course 89-year-old female with stable C1 and C2 fractures that was sent by Dr. Yañez for c-collar replacement. The family is concerned that it is too big and is irritating the skin around her neck. [employer] came to the bedside, evaluated the neck brace and some moleskin on the neck brace to avoid continued skin irritation. [employer] verified the neck brace is the correct size. Instructed family and patient to follow-up with Dr. Yañez. Instructed patient to follow up with primary care provider. Patient verbalizes understanding and agreement with treatment plan. Patient is medically cleared and stable for discharge. Discussed reasons to return to the emergency department. Patient agrees with treatment plan. The patients vital signs are stable and the patient is stable for outpatient follow-up and treatment. Patient discharged home, stable and in no acute distress. Diagnosis Primary Impression: medically cleared Referrals: Neurosurgeon Primary Care Physician Additional Instructions: Continue cervical collar as previously advised Follow-up with Dr. Yañez Follow-up with primary care provider Return to the emergency department immediately for worsening of symptoms Med/Other Pt SpecificInfo: No Change to Meds, No Meds Exist/No RX given Disposition: 01 DISCHARGE HOME Condition: Stable Kellee Miller Dec 15, 2016 09:17
== END 2016-12-15 10:02 | disposition home or self-care (01) ==
LOC: NEPK 08:56
DX: S12.000D Unspecified displaced fracture of first cervical vertebra, subsequent encounter for fracture with routine healing (principal); S12.100D Unspecified displaced fracture of second cervical vertebra, subsequent encounter for fracture with routine healing; X58.XXXD Exposure to other specified factors, subsequent encounter
CPT/HCPCS: 99281

== ENCOUNTER 2017-03-15 19:54 | Emergency (ER) | payer MEDICARE ==
[~2017-03-15] VITALS: Ht 147.3 cm; Wt 45.5 kg
[~2017-03-15 19:54] MED LIST changes: -DOCU1CAP21 PO; +DOCU50CA9 PO
[2017-03-15 19:56] VITALS: BP 142/66; PULSE 66; RESP 18; TEMP 97; O2SAT 98
--- NOTE | 2017-03-15 21:09 | RADRPT ---
EXAM DATE/TIME: 03/15/2017 20:21 [facility] COMPARISON: CHEST SINGLE AP, March 23, 2016, 14:27. INDICATIONS : Patient fell today. Complains of bilateral rib pain. MEDICAL HISTORY : None. SURGICAL HISTORY : CABG. Heart valve replacement. ENCOUNTER: Initial ACUITY: 1 day PAIN SCORE: 5/10 LOCATION: chest FINDINGS: 2 portable frontal views of the chest shows median sternotomy wires. Prosthetic heart valve. Mild car diomegaly is stable. Lungs are clear. Old right-sided rib fractures. No acute fractures. CONCLUSION: Cardiomegaly. Clear lungs. Eb Farmer Jr., MD on March 15, 2017 at 21:06 Board Certified Radiologist. This report was verified electronically.
--- NOTE | 2017-03-15 21:11 | RADRPT ---
EXAM DATE/TIME: 03/15/2017 20:29 [facility] COMPARISON: No previous studies available for comparison. INDICATIONS : Patient fell today. Complains of pelvic pain. MEDICAL HISTORY : None. SURGICAL HISTORY : None. ENCOUNTER: Initial ACUITY: 1 day PAIN SCORE: 5/10 LOCATION: Pelvis FINDINGS: A single frontal view the pelvis shows an old right hip fracture with hardware. Old trauma involving the superior and inferior pubic rami on the left and pubis on the right. No acute fracture seen. Diff use osteopenia. Degenerative changes of lumbar spine. Right femoral neck screw with intramedullary ro d and cerclage wire. CONCLUSION: Old trauma without acute abnormality. Eb Farmer Jr., MD on March 15, 2017 at 21:08 Board Certified Radiologist. This report was verified electronically.
--- NOTE | 2017-03-15 21:12 | RADRPT ---
EXAM DATE/TIME: 03/15/2017 20:35 [facility] COMPARISON: No previous studies available for comparison. INDICATIONS : Patient fell today and complains of right humerus pain. MEDICAL HISTORY : None. SURGICAL HISTORY : None. ENCOUNTER: Initial ACUITY: 1 day PAIN SCORE: 5/10 LOCATION: Right Humerus FINDINGS: Two view examination of the right humerus demonstrates no evidence of fracture or dislocation. Bony mineralization is normal. The soft tissue structures are intact. CONCLUSION: Unremarkable examination of the right humerus. Eb Farmer Jr., MD on March 15, 2017 at 21:10 Board Certified Radiologist. This report was verified electronically.
--- NOTE | 2017-03-15 21:12 | RADRPT ---
EXAM DATE/TIME: 03/15/2017 20:30 [facility] COMPARISON: FEMUR RIGHT (AP & LAT/2VWS), March 24, 2016, 14:31. INDICATIONS : Patient complains of right femur pain status post fall. MEDICAL HISTORY : None. SURGICAL HISTORY : None. ENCOUNTER: Initial ACUITY: 1 day PAIN SCORE: 5/10 LOCATION: Right Femur FINDINGS: There is a femoral neck screw with long intramedullary kev and cerclage wire. No acute fracture or di slocation. Soft tissues are unremarkable. CONCLUSION: Old trauma without acute abnormality. Eb Farmer Jr., MD on March 15, 2017 at 21:09 Board Certified Radiologist. This report was verified electronically.
--- NOTE | 2017-03-15 21:13 | RADRPT ---
EXAM DATE/TIME: 03/15/2017 20:38 [facility] COMPARISON: No previous studies available for comparison. INDICATIONS : Patient fell today. Complains of right elbow pain. MEDICAL HISTORY : None. SURGICAL HISTORY : None. ENCOUNTER: Initial ACUITY: 1 day PAIN SCORE: 5/10 LOCATION: Right Elbow FINDINGS: Multiple view examination of the right elbow demonstrates no soft tissue swelling, joint effusion, or fracture. The osseous structures are in normal alignment. Bony mineralization is normal. CONCLUSION: No acute disease. Eb Farmer Jr., MD on March 15, 2017 at 21:11 Board Certified Radiologist. This report was verified electronically.
--- NOTE | 2017-03-15 21:15 | RADRPT ---
EXAM DATE/TIME: 03/15/2017 20:51 [facility] COMPARISON: CT BRAIN W/O CONTRAST, March 26, 2016, 17:41. INDICATIONS : Trauma, fall. RADIATION DOSE: 34.78 CTDIvol (mGy) MEDICAL HISTORY : Hypertension. Cardiovascular disease Carcinoma, breast.C1-C2 fracture. SURGICAL HISTORY : None. ENCOUNTER: Initial ACUITY: 1 day PAIN SCALE: 0/10 LOCATION: cranial TECHNIQUE: Multiple contiguous axial images were obtained of the head. Using automated exposure control and adj ustment of the mA and/or kV according to patient size, radiation dose was kept as low as reasonably a chievable to obtain optimal diagnostic quality images. DICOM format image data is available electro nically for review and comparison. FINDINGS: CEREBRUM: Atrophy. Periventricular low attenuation change involving both cerebral hemispheres. The ventricles a re normal for age. No evidence of midline shift, mass lesion, hemorrhage or acute infarction. No ex tra-axial fluid collections are seen. POSTERIOR FOSSA: The cerebellum and brainstem are intact. The 4th ventricle is midline. The cerebellopontine angle i s unremarkable. EXTRACRANIAL: The visualized portion of the orbits is intact. SKULL: The calvaria is intact. No evidence of skull fracture. CONCLUSION: 1. No acute intracranial abnormality. 2. Atrophy and chronic small vessel ischemic change. Eb Farmer Jr., MD on March 15, 2017 at 21:12 Board Certified Radiologist. This report was verified electronically.
--- NOTE | 2017-03-15 21:33 | RADRPT ---
EXAM DATE/TIME: 03/15/2017 20:51 [facility] COMPARISON: CT CERVICAL SPINE W/O CONTRAST, December 08, 2016, 5:59. INDICATIONS : Trauma, fall. Neck pain. RADIATION DOSE: 10.52 CTDIvol (mGy) MEDICAL HISTORY : Hypertension. Cardiovascular disease Carcinoma, breast.C1-C2 fracture. SURGICAL HISTORY : None. ENCOUNTER: Initial ACUITY: 1 day PAIN SCALE: 7/10 LOCATION: neck TECHNIQUE: Volumetric scanning of the cervical spine was performed. Multiplanar reconstructions in the sagittal, coronal and oblique axial planes were performed. Using automated exposure control and adjustment o f the mA and/or kV according to patient size, radiation dose was kept as low as reasonably achievable to obtain optimal diagnostic quality images. DICOM format image data is available electronically f or review and comparison. FINDINGS: Again seen is a type II dens fracture. This was seen on the prior study. There has been interval beach ge in the appearance of the fracture since the prior study. There was previously 3 mm of diastases of the fracture fragments. Mal this approaches 6 mm. The fracture involving the anterior portion of C1 is stable. Lack of fusion at the fracture sites. No new fracture is observed. Multilevel degenerative changes previously detailed are again seen. No new fracture is observed. CONCLUSION: 1. Again seen is a type II dens fracture. There has been some separation of the fracture fragments re lative to the prior study as detailed above. 2. Stable fracture involving C1. 3. No new fracture is appreciated. Eb Farmer Jr., MD on March 15, 2017 at 21:26 Board Certified Radiologist. This report was verified electronically.
[2017-03-15] MEDS ORDERED: LEXA5TAB PO (23:02)
[2017-03-15] MEDS ORDERED: VAGI10TA VAGINAL (23:02)
[2017-03-15] MEDS ORDERED: ASPI81TA23 PO (23:02)
[2017-03-15] MEDS ORDERED: LEXA10TA PO (23:02)
[2017-03-15] MEDS ORDERED: TEMA15CA PO (23:02)
[2017-03-15] MEDS ORDERED: META48.53 PO (23:02)
[2017-03-15] MEDS ORDERED: TOLT1CAP PO (23:02)
[2017-03-15] MEDS ORDERED: AMLO2.5T PO (23:02)
[2017-03-15] MEDS ORDERED: VITA200C3 PO (23:02)
--- NOTE | 2017-03-15 23:13 | PD ---
HPI Chief Complaint: Fall Time Seen by Provider: 21:58 Travel History International Travel<30 days: No Contact w/Intl Traveler<30days: No Traveled to known affect area: No History of Present Illness HPI 89yo F with PMH of CAD on 24 hour hospice care, C1, C2 fracture in 11/2016 medically managed with soft cervical spine collar presents to the ED for evaluation after fall yesterday. Pt said she was walking on her walker and fell on her right side yesterday. However, her daughter said no one saw her fall and she has 24 hour help. Said she was able to ambulate yesterday after the "fall". Denies any chest pain, sob, n/v, abdominal pain, focal weakness or numbness. PFSH Past Medical History Hx Anticoagulant Therapy: Yes Arthritis: Yes (OSTEOARTHRITIS) Atrial Fibrillation: Yes (WITH SVT) Autoimmune Disease: No Heart Rhythm Problems: No Cancer: Yes (Breast cancer) Cardiac Catheterization: Yes Cardiovascular Problems: Yes High Cholesterol: Yes Chest Pain: Yes Cerebrovascular Accident: No Diabetes: No Diminished Hearing: Yes Diverticulitis: Yes Endocrine: No Gastrointestinal Disorders: Yes (Gastroparesis) GERD: Yes Genitourinary: No Hypertension: Yes Immune Disorder: No Musculoskeletal: Yes (Right pubic fracture, arthritis) Neurologic: Yes Psychiatric: No Reproductive: No Respiratory: No Immunizations Current: Yes Migraines: No Pancreatitis: Yes Seizures: No Thyroid Disease: No Triglycerides - High: Yes Ulcer: No Menopausal: Yes Past Surgical History Abdominal Surgery: Yes (HERNIA REPAIR) Cardiac Surgery: Yes (CABG) 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) Eye Surgery: Yes (BILATERAL CATARACTS) Genitourinary Surgery: Yes (BLADDER SLING) Gynecologic Surgery: Yes ( L LUMPECTOMY (BENIGN)) Hysterectomy: Yes Thoracic Surgery: Yes Tonsillectomy: Yes Valve Replacement: Yes (AORTIC VALVE) Other Surgery: Yes (MASTOID SURGERY ) Family History Family Hypercholesterolemia: Yes Social History Alcohol Use: No Tobacco Use: No Substance Use: No Allergies-Medications (Allergen,Severity, Reaction): Coded Allergies: Sulfa (Sulfonamide Antibiotics) (Verified Allergy, Severe, 03/15/17) penicillin G (Verified Allergy, Severe, JAUNDICED, 03/15/17) bacitracin (Verified Adverse Reaction, Severe, 03/15/17) polymyxin B (Verified Adverse Reaction, Severe, 03/15/17) Reported Meds & Prescriptions Reported Meds & Active Scripts Active Reported Lexapro (Escitalopram Oxalate) 10 Mg Tab 10 Mg PO DAILY Lexapro (Escitalopram Oxalate) 5 Mg Tab 5 Mg PO DAILY Vagifem Vaginal (Estradiol Vaginal) 10 Mcg Vagtab 10 Mcg VAGINAL WEEKLY Amlodipine (Amlodipine Besylate) 2.5 Mg Tab 2.5 Mg PO DAILY Vitamin E 200 Unit Cap 400 Units PO DAILY Temazepam 15 Mg Cap 15 Mg PO HS PRN Metamucil Original Texture (Psyllium Hydrophilic Mucilloid) 3.4 Gram/7 Gram Pow 1 Scoop PO HS PRN 1 rounded TEASPOON in 8 oz of liquid at the first sign of irregularity. Tolterodine ER (Tolterodine Tartrate) 4 Mg Cap 4 Mg PO DAILY Aspirin EC (Aspirin) 81 Mg Tabdr 81 Mg PO DAILY Tylenol (Acetaminophen) 325 Mg Tab 650 Mg PO Q6H PRN Ursodiol 300 Mg Cap 300 Mg PO BID Magnesium Oxide 400 Mg Tab 400 Mg PO DAILY Protonix (Pantoprazole Sodium) 40 Mg Tab 40 Mg PO HS Coreg (Carvedilol) 25 Mg Tab 25 Mg PO BID Bethanechol 25 Mg Tab 12.5 Mg PO TID 30 minutes before meals Diovan (Valsartan) 160 Mg Tab 160 Mg PO DAILY Amiodarone (Amiodarone HCl) 100 Mg Tab 100 Mg PO DAILY Review of Systems Except as stated in HPI: all other systems reviewed are Neg Physical Exam Narrative GENERAL: 89yo F not in distress. SKIN: Focused skin assessment warm/dry. HEAD: Atraumatic. Normocephalic. EYES: Pupils equal and round. No scleral icterus. No injection or drainage. ENT: No nasal bleeding or discharge. Mucous membranes pink and moist. NECK: Soft cervical spine collar. CARDIOVASCULAR: Regular rate and rhythm. No murmur appreciated. RESPIRATORY: No accessory muscle use. Clear to auscultation. Breath sounds equal bilaterally. GASTROINTESTINAL: Abdomen soft, non-tender, nondistended. MUSCULOSKELETAL: +TTP right femur. No redness, ecchymoses. Can flex right hip. Can bend right knee but will not lift right leg off bed. Distal pulses intact bilateral lower extremity. +TTP right humerus. Abrasion right elbow. FROM right elbow. Distal pulses intact. Sensation intact. NEUROLOGICAL: Awake and alert. No obvious cranial nerve deficits. Motor grossly within normal limits. Normal speech. Sensation intact. PSYCHIATRIC: Appropriate mood and affect; insight and judgment normal. Data Data Last Documented VS Vital Signs Date Time Temp Pulse Resp B/P (MAP) Pulse Ox O2 Delivery O2 Flow Rate FiO2 03/15/17 22:32 98 Room Air 03/15/17 19:56 97.0 66 18 142/66 (91) Orders Orders Ct Brain W/O Iv Contrast(Rout) (03/15/17 ) Ct Cerv Spine W/O Contrast (03/15/17 ) Humerus (Min 2vws) (03/15/17 ) Elbow, Complete (4 Vws) (03/15/17 ) Femur (Ap & Lat/2vws) (03/15/17 ) Chest, Single Ap (03/15/17 ) Pelvis, Ap Only (Routine) (03/15/17 ) Ct Hip W/O Contrast (03/15/17 ) Temazepam (Restoril) (03/16/17 00:30) Acetaminophen (Tylenol) (03/16/17 00:30) MDM Medical Decision Making Medical Screen Exam Complete: Yes Emergency Medical Condition: Yes Differential Diagnosis Fracture vs. contusion Narrative Course 89yo F here with complaint of right arm, elbow and hip pain after fall yesterday. Pt able to ambulate after the fall and no one saw the fall. Pt said he has no pain if I dont touch her. Denies any chest pain or sob. Imagining ordered by triage midlevel provider. CT cervical spine again showed a type II dens fracture. There has been some separation of the fracture fragments relative to prior study. Previous 3mm diastases of fracture fragment is now 6mm. Stable fracture C1. CXR negative. Xray right elbow negative. Xray right femur showed old trauma without any acute abnormality. CT brain negative. Xray right humerus unremarkable. Xray pelvis showed no acute abnormality. Even though pt is under hospice care, pt's daughter wants to make sure this is a stable fracture and is open to surgical repair if needed. Pt had follow up with Dr. Michael 02/06/17 and xray showed C2 fracture not yet healed. I discussed with Dr. Barron and he said that there is no subluxation or cord compromise. Advice her to follow up with Dr. Michael as outpatient. I obtained a CT because pt still had pain in right hip despite no fracture on xray. CT right hip showed no acute fracture. Hospice is here and will admit her to inpatient hospice and pt will follow up with orthopedic and neurosurgeon as outpatient. Daughter agrees with plan. Pt given temazepam and acetaminophen as requested by daughter since pt takes temazepam at night and has not had her dose. Diagnosis Primary Impression: Fall Qualified Codes: W19.XXXA - Unspecified fall, initial encounter Patient Instructions: General Instructions Departure Forms: Tests/Procedures Additional Instructions: Please follow up with your neurosurgeon Dr. Michael as outpatient. If you continue to have right hip pain, please follow up with orthopedic. Return to the ED if symptoms worsen. Med/Other Pt SpecificInfo: No Change to Meds Disposition: 01 DISCHARGE HOME Condition: Stable Zoe Daniels DO Mar 15, 2017 23:13
--- NOTE | 2017-03-15 23:41 | RADRPT ---
EXAM DATE/TIME: 03/15/2017 22:56 [facility] COMPARISON: No previous studies available for comparison. INDICATIONS : Right hip pain after fall. RADIATION DOSE: 23.48 CTDIvol (mGy) MEDICAL HISTORY : Cardiovascular disease. Chronic obstructive pulmonary disease. SURGICAL HISTORY : Pacemaker. hip ENCOUNTER: Initial ACUITY: 1 day PAIN SCALE: 5/10 LOCATION: Right pelvis TECHNIQUE: Volumetric scanning of the hip was performed. Using automated exposure control and adjustment of the mA and/or kV according to patient size, radiation dose was kept as low as reasonably achievable to o btain optimal diagnostic quality images. DICOM format image data is available electronically for rev iew and comparison. FINDINGS: BONES: There is a compression screw through the femoral head and neck and intramedullary kev seen on the rig ht side. A cerclage wire at the proximal right femur. There is area of cortical disruption and overla p at the inferior lateral junction of the right femoral neck and the femoral shaft. This is thought t o be from prior injury. This is best seen on the reconstructed coronal images. An acute fracture is n ot seen. There is deformity from prior fracture and at the inferior pubic rami bilaterally and at the medial pubic bones adjacent to the pubic symphysis. There is grade 1 anterior spondylolisthesis of L 4 on L5. There is degenerative change of the lower lumbar spine. JOINTS: No evidence of joint narrowing or effusion. SOFT TISSUES: Muscles, tendons and neurovascular structures are grossly unremarkable. There is a pessary ring in th e vagina. Colonic diverticula are seen in the sigmoid region. There appear to be bowel jennifer in the left lower quadrant. CONCLUSION: 1. Status post ORIF of a prior right proximal femur fracture. Surgical hardware is seen. 2. Chronic deformity from prior fracturing of the inferior pubic rami and medial pubic bones bilatera lly. 3. Degenerative change of the lower lumbar spine including grade 1 anterior spondylolisthesis of L4 o n L5. 4. Sigmoid colon diverticula. Maciej Coker MD on March 15, 2017 at 23:33 Board Certified Radiologist. This report was verified electronically.
[2017-03-16] MEDS ORDERED: TEMAZEPAM 15 MG CAP PO ONE (00:30)
[2017-03-16] MEDS ORDERED: ACETAMINOPHEN 500 MG CPLT PO ONE (00:30)
== END 2017-03-16 02:21 | disposition home or self-care (01) ==
LOC: NEPE 19:54
DX: M25.521 Pain in right elbow (principal); M25.551 Pain in right hip; M79.601 Pain in right arm; M51.36 Other intervertebral disc degeneration, lumbar region; I25.10 Atherosclerotic heart disease of native coronary artery without angina pectoris; I48.91 Unspecified atrial fibrillation; I51.7 Cardiomegaly; W18.30XA Fall on same level, unspecified, initial encounter; Z87.19 Personal history of other diseases of the digestive system
CPT/HCPCS: 70450; 71045; 72125; 72170; 73060; 73080; 73552; 73700